=== PATIENT | female | born 1940 | race Caucasian/White ===

== ENCOUNTER 2018-09-10 14:11 | Outpatient (CLI) | payer MEDICARE ==
[2018-09-10 19:12] LABS: BASOPHILS % (AUTO) 0.5 %; EOSINOPHILS # (AUTO) 0.1 10^3/uL (0.0-0.7); EOSINOPHILS % (AUTO) 0.8 %; LYMPHOCYTES # (AUTO) 1.7 10^3/uL (1.5-3.5); MEAN CORPUSCULAR HEMOGLOBIN 32.6 pg (27.0-31.0); MEAN CORPUSCULAR HGB CONC 34.1 g/dL (32.0-36.0); MEAN CORPUSCULAR VOLUME 95.4 fL (81.0-99.0); MEAN PLATELET VOLUME 9.8 fL (7.9-10.8); MONOCYTES # (AUTO) 0.3 10^3/uL (0.0-1.0); MONOCYTES % (AUTO) 4.6 %; NEUTROPHILS # (AUTO) 4.6 10^3/uL (1.5-6.6); NEUTROPHILS % (AUTO) 68.1 %; PLT - PLATELET COUNT 161 10^3/uL (130-450); RED BLOOD COUNT 3.99 10^6/uL (4.20-5.40); RED CELL DISTRIBUTION WIDTH 12.5 % (12.0-15.0); WHITE BLOOD COUNT 6.7 x10^3/uL (4.8-10.8)
[2018-09-10 19:15] LABS: ALBUMIN 4.3 g/dL (3.2-5.5); ALBUMIN/GLOBULIN RATIO 1.8 (1.0-2.2); ALKALINE PHOSPHATASE 41 IU/L (42-121); ALT ALANINE AMINOTRANSFERASE 19 IU/L (10-60); AST ASPARTATE AMINOTRANSFERASE 23 IU/L (10-42); BILIRUBIN,TOTAL 0.7 mg/dL (0.2-1.0); BUN - BLOOD UREA NITROGEN 20 mg/dL (6-20); CALCIUM 9.4 mg/dL (8.5-10.3); CARBON DIOXIDE - CO2 24 mmol/L (21-32); CHLORIDE 105 mmol/L (101-111); CHOL/HDL RATIO 5.2 (<4.4); CHOLESTEROL 232 mg/dL; GFR - MDRD 54 (>89); GLUCOSE 137 mg/dL (70-100); HDL CHOLESTEROL 45 mg/dL; LDL CHOLESTEROL,CALCULATED 139 mg/dL; LDL/HDL RATIO 3.1 (<4.4); SODIUM 135 mmol/L (135-145); TOTAL PROTEIN 6.7 g/dL (6.7-8.2); VLDL CHOLESTEROL 48 mg/dL
== END 2018-09-10 14:12 | disposition home or self-care (01) ==
LOC: LAB.N 14:11
PROVIDERS: ATTEND Physician Assistant Medical
DX: Z00.00 Encounter for general adult medical examination without abnormal findings (principal); K21.9 Gastro-esophageal reflux disease without esophagitis; E78.5 Hyperlipidemia, unspecified; I10 Essential (primary) hypertension
CPT/HCPCS: 36415; 80053; 80061; 83721; 84443; 85025

== ENCOUNTER 2018-10-21 10:50 | Outpatient (CLI) | payer MEDICARE ==
[2018-10-21 19:49] LABS: BUN - BLOOD UREA NITROGEN 23 mg/dL (6-20); CALCIUM 9.1 mg/dL (8.5-10.3); CARBON DIOXIDE - CO2 23 mmol/L (21-32); CHLORIDE 105 mmol/L (101-111); CHOL/HDL RATIO 2.5 (<4.4); CHOLESTEROL 109 mg/dL; GFR - MDRD 54 (>89); GLUCOSE 89 mg/dL (70-100); HDL CHOLESTEROL 44 mg/dL; LDL CHOLESTEROL,CALCULATED 41 mg/dL; LDL/HDL RATIO 0.9 (<4.4); SODIUM 137 mmol/L (135-145); VLDL CHOLESTEROL 24 mg/dL
== END 2018-10-21 10:51 | disposition home or self-care (01) ==
LOC: LAB.N 10:50
PROVIDERS: ATTEND Physician Assistant Medical
DX: E78.5 Hyperlipidemia, unspecified (principal)
CPT/HCPCS: 36415; 80048; 80061; 83721

== ENCOUNTER 2020-06-07 01:05 | Emergency (ER) | payer MEDICARE ==
--- NOTE | 2020-06-07 01:19 | ED Physician Documentation ---
PD HPI UPPER EXT INJURY - Stated complaint Stated Complaint: L THUMB PX - Chief complaint Chief Complaint: Cardiac - History obtained from History obtained from: Patient - History of Present Illness Location: Left, Finger (thumb) Type of injury: Laceration (Cut her thumb with a small laceration 3 days ago while opening a wine bottle. She denies any foreign body in the area. It was from the room service associate device. She is now developed redness and swelling in the last day at the area and this evening has a red streak up her hand to the level of the wrist.), Other (She noted a feeling of pressure and palpitations in her chest on the right appear. This was the first she had ever felt of that.) Where injury occurred: Home Timing - duration: Days (3) Timing - details: Gradual onset, Still present Worsened by: Palpating Associated symptoms: Swelling (for 1 1/2 days), Discolored. No: Weakness, Numbness Similar symptoms before: Has not had sx before Review of Systems Constitutional: denies: Fever, Chills Nose: denies: Rhinorrhea / runny nose, Congestion Throat: denies: Sore throat Cardiac: reports: Palpitations (just enroute here). denies: Pedal edema, Calf pain Respiratory: denies: Cough GI: denies: Nausea, Vomiting, Diarrhea Neurologic: denies: Focal weakness, Numbness, Near syncope PD PAST MEDICAL HISTORY - Past Medical History Cardiovascular: Hypertension, Other (no history of afib nor SVT) Respiratory: None Neuro: None Endocrine/Autoimmune: None - Present Medications Home Medications: Ambulatory Orders Medication Instructions Recorded Confirmed Cephalexin [Keflex] 500 mg PO Q6H #28 capsule 06/07/20 Metoprolol Succinate 25 mg PO 06/07/20 Mupirocin 1 applic TP TID #15 g 06/07/20 Omeprazole 40 mg PO 06/07/20 Rosuvastatin Calcium 40 mg PO 06/07/20 lisinopriL [Lisinopril] 20 mg PO 06/07/20 - Allergies Allergies/Adverse Reactions: Allergies Allergy/AdvReac Type Severity Reaction Status Date / Time No Known Drug Allergies Allergy Verified 06/07/20 01:12 - Living Situation Living Situation: reports: Alone Living Arrangement: reports: At home - Social History Does the pt smoke?: No Does the pt drink ETOH?: Yes ETOH Use: Wine (very occasionally) Does the pt have substance abuse?: No PD ED PE NORMAL - Vitals Vital signs reviewed: Yes - General General: Alert and oriented X 3, No acute distress, Well developed/nourished - HEENT HEENT: Moist mucous membranes, Pharynx benign - Neck Neck: Supple, no meningeal sign, No adenopathy - Cardiac Cardiac: No murmur, No rub. No: RRR (rapid, regular at 180s.) - Respiratory Respiratory: Clear bilaterally - Abdomen Abdomen: Soft, Non tender - Back Back: No CVA TTP - Derm Derm: Normal color, Warm and dry - Extremities Extremities: No tenderness to palpate, Normal ROM s pain, No edema, No calf tenderness / cord, Other (Left thumb shows a small partial-thickness avulsion about 3 to 4 mm in diameter. There is no obvious foreign body. There is surrounding redness without any purulence nor fluctuance on the pulp pad part of the thumb and a lymphangitic streak up to the wrist) - Neuro Neuro: Alert and oriented X 3, No motor deficit, No sensory deficit, Normal speech Results - Vitals Vitals: Vital Signs - 24 hr 06/07/20 06/07/20 06/07/20 01:12 01:30 01:46 Temperature 36.6 C Heart Rate 184 H 178 H 162 H Respiratory 20 20 18 Rate Blood Pressure 153/123 H 157/104 H 149/111 H O2 Saturation 97 99 96 06/07/20 06/07/20 06/07/20 02:16 02:40 02:47 Temperature Heart Rate 142 H 83 72 Respiratory 18 23 18 Rate Blood Pressure 150/106 H 133/103 H 133/103 H O2 Saturation 95 97 98 06/07/20 06/07/20 06/07/20 03:15 03:26 03:30 Temperature Heart Rate 118 H 104 H 73 Respiratory 22 18 18 Rate Blood Pressure 148/103 H 148/103 H 121/98 H O2 Saturation 99 98 98 06/07/20 06/07/20 04:00 04:11 Temperature Heart Rate 85 80 Respiratory 18 21 Rate Blood Pressure 144/115 H 144/115 H O2 Saturation 98 99 Oxygen O2 Source Room air - EKG (time done) 01:18 Rate: Rate (enter#) (179) Rhythm: SVT Kulm: Normal Ischemia: Normal ST segments. No: ST elevation c/w ischemia, ST depression 04:07 Rate: Rate (enter#) (81) Rhythm: NSR Kulm: Normal Intervals: Normal IN QRS: Normal Ischemia: Normal ST segments. No: ST elevation c/w ischemia, ST depression Compare to prior EKG: Changed from prior EKG - Labs Labs: Laboratory Tests 06/07/20 06/07/20 06/07/20 01:30 01:30 01:30 WBC 9.4 RBC 4.05 L Hgb 13.5 Hct 38.1 MCV 94.1 MCH 33.3 H MCHC 35.4 RDW 11.8 L Plt Count 145 MPV 11.3 H Neut # (Auto) 6.9 H Lymph # (Auto) 1.6 [place] # (Auto) 0.7 Eos # (Auto) 0.1 Baso # (Auto) 0.0 Absolute Nucleated RBC 0.00 Nucleated RBC % 0.0 Sodium 138 Potassium 3.6 Chloride 106 Carbon Dioxide 20 L Anion Gap 12.0 BUN 13 Creatinine 0.9 Estimated GFR (MDRD) 60 L Glucose 128 H Calcium 9.5 Magnesium 1.9 Total Bilirubin 0.9 AST 28 ALT 26 Alkaline Phosphatase 49 Total Protein 7.2 Albumin 4.4 Globulin 2.8 Albumin/Globulin Ratio 1.6 Lipase 51 TSH 3.63 PD MEDICAL DECISION MAKING - ED course Complexity details: reviewed results, re-evaluated patient (Adenosine was given and did convert her to a sinus rhythm but just for half a minute or so and then resumed the SVT. Subsequent doses of metoprolol brought her heart rate down and she converted to sinus rhythm more consistently after the third dose.), considered differential (She has some cellulitis appearance of her wound on her with a lymphangitic streak up to the wrist. There is no fluctuance nor abscess formation. She also appears in SVT which sounds new onset), d/w patient ED course: SVT episode. She does not appear septic. Otherwise appears normal. No exertionally related symptoms. I think this was an incidental electrical disturbance and not account service representative of ischemic heart disease. Departure - Departure Disposition: 01 Home, Self Care Clinical Impression: Cellulitis of left thumb, SVT (supraventricular tachycardia) Condition: Stable Record reviewed to determine appropriate education?: Yes Instructions: ED Infec Skin Cellulitis, ED Tachycardia Pat PSVT Follow-Up: JANNETTE CAMPOS MD [Provider Admit Priv/Credential] - Prescriptions: Cephalexin [Keflex] 500 mg PO Q6H #28 capsule Mupirocin 1 applic TP TID #15 g Comments: Warm soaks or compresses for the thumb infection a few times a day. Apply mupirocin topical antibiotic to the area after that. Rest the hand and thumb otherwise. Cephalexin antibiotic orally 4 times a day for the next week. Recheck if not improving well over the next several days and resolved by 3 to 5 days. You did have an abnormal heart rhythm coming here called SVT T. It was resolved at the time that you left. Return if you have a similar feeling that lasts more than an hour or 2. Continue your usual medications and stay well-hydrated. Follow-up with your primary care regarding the SVT, discuss it at your next appointment next month. Return to the ER if your thumb infection is not improving over the next several days or if you have further episodes of the SVT feeling. Discharge Date/Time: 06/07/20 04:20
[2020-06-07] MEDS ORDERED: cefTRIAXone 1 GM VIAL IVP STA (01:35)
[2020-06-07] MEDS ORDERED: SODIUM CHLORIDE 0.9% 1,000 ML IV STA (01:35)
[2020-06-07] MEDS ORDERED: ADENOSINE 6 MG/2 ML VIAL IVP STA (01:35)
[2020-06-07 01:44] LABS: BASOPHILS % (AUTO) 0.3 %; EOSINOPHILS # (AUTO) 0.1 10^3/uL (0.0-0.7); EOSINOPHILS % (AUTO) 1.3 %; HGB - HEMOGLOBIN 13.5 g/dL (12.0-16.0); LYMPHOCYTES # (AUTO) 1.6 10^3/uL (1.5-3.5); LYMPHOCYTES % (AUTO) 16.5 %; MEAN CORPUSCULAR HEMOGLOBIN 33.3 pg (27.0-31.0); MEAN CORPUSCULAR HGB CONC 35.4 g/dL (32.0-36.0); MEAN CORPUSCULAR VOLUME 94.1 fL (81.0-99.0); MEAN PLATELET VOLUME 11.3 fL (7.9-10.8); MONOCYTES # (AUTO) 0.7 10^3/uL (0.0-1.0); MONOCYTES % (AUTO) 7.9 %; NEUTROPHILS # (AUTO) 6.9 10^3/uL (1.5-6.6); NEUTROPHILS % (AUTO) 73.6 %; PLT - PLATELET COUNT 145 10^3/uL (130-450); RED BLOOD COUNT 4.05 10^6/uL (4.20-5.40); RED CELL DISTRIBUTION WIDTH 11.8 % (12.0-15.0); WHITE BLOOD COUNT 9.4 x10^3/uL (4.8-10.8)
[2020-06-07 01:57] LABS: ALBUMIN 4.4 g/dL (3.2-5.5); ALBUMIN/GLOBULIN RATIO 1.6 (1.0-2.2); BILIRUBIN,TOTAL 0.9 mg/dL (0.2-1.0); CALCIUM 9.5 mg/dL (8.5-10.3); CREATININE 0.9 mg/dL (0.4-1.0); MAGNESIUM 1.9 mg/dL (1.7-2.8); TOTAL PROTEIN 7.2 g/dL (6.7-8.2)
[2020-06-07] MEDS ORDERED: METOPROLOL 5 MG/5 ML VIAL IVP STA ×3 (02:03→03:04)
[2020-06-07] MEDS ORDERED: POTASSIUM CHLOR 10 MEQ/100 ML 10 MEQ/100 ML BAG IV ONE (02:20)
[2020-06-07 04:07] VITALS: BP 144/115
[2020-06-07] MEDS ORDERED: MUPIROCIN 2% OINT 1 GM TOP STA (04:09)
== END 2020-06-07 04:20 | disposition home or self-care (01) ==
LOC: ED 01:05
DX: S61.012A Laceration without foreign body of left thumb without damage to nail, initial encounter (principal); L03.012 Cellulitis of left finger; W27.8XXA Contact with other nonpowered hand tool, initial encounter; Y93.89 Activity, other specified; Y92.009 Unspecified place in unspecified non-institutional (private) residence as the place of occurrence of the external cause; I47.1 Supraventricular tachycardia; I10 Essential (primary) hypertension
CPT/HCPCS: 36415; 80053; 83690; 83735; 84443; 85025; 93005; 96361; 96365; 96375; 96376; 99284; A9270; J0153

== ENCOUNTER 2021-03-28 07:00 | Outpatient (CLI) | payer MEDICARE ==
[2021-03-28 18:19] LABS: FECAL OCCULT BLOOD (FIT) NEGATIVE (NEGATIVE)
== END 2021-03-28 23:59 | disposition home or self-care (01) ==
LOC: LAB.N 07:00
PROVIDERS: ATTEND Family Medicine
DX: R19.4 Change in bowel habit (principal)
CPT/HCPCS: 82274

== ENCOUNTER 2021-04-02 04:30 | Outpatient (CLI) | payer MEDICARE | END 2021-04-02 23:59 | disposition home or self-care (01) | LOC: LAB.N 04:30 | PROVIDERS: ATTEND Family Medicine | DX: R19.4 Change in bowel habit (principal) | CPT/HCPCS: 81599; 87045; 87046; 87177; 87209; 87329; 87427 ==

== ENCOUNTER 2021-04-03 08:00 | Outpatient (CLI) | payer MEDICARE ==
[2021-04-04 12:57] LABS: H. PYLORIS ANTIGEN STL NEGATIVE (Negative)
== END 2021-04-03 23:59 ==
LOC: LAB.N 08:00
PROVIDERS: ATTEND Family Medicine
DX: R19.4 Change in bowel habit (principal)
CPT/HCPCS: 83993; 87338; 87493

== ENCOUNTER 2021-07-26 12:50 | Outpatient (CLI) | payer MEDICARE ==
[2021-07-26 17:52] LABS: BASOPHILS % (AUTO) 0.4 %; EOSINOPHILS # (AUTO) 0.1 10^3/uL (0.0-0.7); EOSINOPHILS % (AUTO) 1.1 %; HGB - HEMOGLOBIN 13.6 g/dL (12.0-16.0); LYMPHOCYTES # (AUTO) 1.6 10^3/uL (1.5-3.5); LYMPHOCYTES % (AUTO) 21.1 %; MEAN CORPUSCULAR HEMOGLOBIN 32.6 pg (27.0-31.0); MEAN CORPUSCULAR HGB CONC 33.2 g/dL (32.0-36.0); MEAN CORPUSCULAR VOLUME 98.3 fL (81.0-99.0); MEAN PLATELET VOLUME 11.4 fL (7.9-10.8); MONOCYTES # (AUTO) 0.5 10^3/uL (0.0-1.0); MONOCYTES % (AUTO) 6.7 %; NEUTROPHILS # (AUTO) 5.3 10^3/uL (1.5-6.6); NEUTROPHILS % (AUTO) 70.4 %; PLT - PLATELET COUNT 193 10^3/uL (130-450); RED BLOOD COUNT 4.17 10^6/uL (4.20-5.40); RED CELL DISTRIBUTION WIDTH 11.9 % (12.0-15.0); WHITE BLOOD COUNT 7.5 x10^3/uL (4.8-10.8)
[2021-07-26 18:11] LABS: ALBUMIN 4.5 g/dL (3.2-5.5); ALBUMIN/GLOBULIN RATIO 1.8 (1.0-2.2); ALKALINE PHOSPHATASE 51 IU/L (42-121); ALT ALANINE AMINOTRANSFERASE 21 IU/L (10-60); AST ASPARTATE AMINOTRANSFERASE 24 IU/L (10-42); BILIRUBIN,TOTAL 0.5 mg/dL (0.2-1.0); BUN - BLOOD UREA NITROGEN 11 mg/dL (6-20); CALCIUM 9.3 mg/dL (8.5-10.3); CARBON DIOXIDE - CO2 26 mmol/L (21-32); CHLORIDE 103 mmol/L (101-111); CHOL/HDL RATIO 2.9 (<4.4); CHOLESTEROL 147 mg/dL; CREATININE 0.8 mg/dL (0.4-1.0); GFR - MDRD 69 (>89); GLUCOSE 112 mg/dL (70-100); HDL CHOLESTEROL 51 mg/dL; LDL CHOLESTEROL,CALCULATED 21 mg/dL; LDL/HDL RATIO 0.4 (<4.4); POTASSIUM 4.1 mmol/L (3.5-5.0); SODIUM 137 mmol/L (135-145); TRIGLYCERIDES 377 mg/dL; VLDL CHOLESTEROL 75 mg/dL
[2021-07-26 18:19] LABS: THYROID STIMULATING HORMONE 1.99 uIU/mL (0.34-5.60)
[2021-07-26 18:20] LABS: FREE T3 3.46 pg/mL (2.5-3.9)
[2021-07-26 18:21] LABS: FREE T4 (FREE THYROXINE) 0.77 ng/dL (0.58-1.64)
== END 2021-07-26 23:59 | disposition home or self-care (01) ==
LOC: LAB.WCP 12:50
PROVIDERS: ATTEND Family Medicine
DX: R19.4 Change in bowel habit (principal); I47.1 Supraventricular tachycardia; K21.9 Gastro-esophageal reflux disease without esophagitis; E78.5 Hyperlipidemia, unspecified; I10 Essential (primary) hypertension
CPT/HCPCS: 36415; 80053; 80061; 83721; 84439; 84443; 84481; 85025

== ENCOUNTER 2021-09-05 13:23 | Outpatient (CLI) | payer MEDICARE | END 2021-09-05 13:24 | disposition home or self-care (01) | LOC: COV 13:23 | PROVIDERS: ATTEND Physician Assistant | DX: Z01.812 Encounter for preprocedural laboratory examination (principal); Z20.822 Contact with and (suspected) exposure to COVID-19 ==

== ENCOUNTER 2021-12-05 08:00 | Outpatient (CLI) | payer MEDICARE | END 2021-12-05 23:59 | LOC: LAB.N 08:00 | PROVIDERS: ATTEND Physician Assistant Medical | DX: R53.83 Other fatigue (principal); Z20.822 Contact with and (suspected) exposure to COVID-19 ==

== ENCOUNTER 2021-12-05 11:23 | Emergency (ER) | payer MEDICARE ==
--- NOTE | 2021-12-05 12:03 | XRAY Report ---
PROCEDURE: Chest 1 View X-Ray INDICATIONS: Chest pain TECHNIQUE: One view of the chest was acquired. COMPARISON: None FINDINGS: Surgical changes and devices: None. Lungs and pleura: No pleural effusions or pneumothorax. Lungs are clear. Eventration of the right hemidiaphragm. Mediastinum: Mediastinal contours appear normal. Heart size is normal. Bones and chest wall: No suspicious bony lesions. Overlying soft tissues appear unremarkable. IMPRESSION: Negative chest Reviewed by: Heber Dale MD on 12/05/2021 12:02 PM PST Approved by: Heber Dale MD on 12/05/2021 12:02 PM PST Station ID: [id number]
--- NOTE | 2021-12-05 12:11 | ED Physician Documentation ---
PD HPI CHEST PAIN - Stated complaint Stated Complaint: WEAKNESS/TIRED - Chief complaint Chief Complaint: Cardiac - History obtained from History obtained from: Patient - Additional information Additional information: This is a erin 81-year-old woman who presents referred by the walk-in clinic for evaluation of some chest discomfort, soft blood pressure and low heart rate. She has no history of heart disease. She does have a history of hypertension for which she is maintained on metoprolol. She states for the last month or so she has had intermittent chest discomfort lasting minutes at a time. It is in the left upper chest. It is not exertional. It may have woken her from sleep once or twice. It is not accelerating. It is not associated with shortness of breath, sweats, or nausea. She does note that she is lost about 15 pounds over the last year. It was not necessarily intentional. During that time she had not had her vital signs done or routine visit. At the walk-in clinic it was reported that her blood pressure was 90/50, and her heart rate was on the low side. She denies dizziness. No syncope. Review of Systems Ten Systems: 10 systems reviewed and negative Constitutional: reports: Weight Loss. denies: Fever, Chills, Fatigue Cardiac: denies: Palpitations Respiratory: denies: Dyspnea, Cough PD PAST MEDICAL HISTORY - Past Medical History Cardiovascular: Hypertension, Other Respiratory: None Neuro: None Endocrine/Autoimmune: None - Past Surgical History Past Surgical History: No - Present Medications Home Medications: Ambulatory Orders Medication Instructions Recorded Confirmed Metoprolol Succinate 25 mg PO BID 06/07/20 Mupirocin 1 applic TP TID #15 g 06/07/20 Omeprazole 40 mg PO 06/07/20 Rosuvastatin Calcium 40 mg PO 06/07/20 cephALEXin [Keflex] 500 mg PO Q6H #28 capsule 06/07/20 lisinopriL [Lisinopril] 20 mg PO DAILY 06/07/20 12/05/21 - Allergies Allergies/Adverse Reactions: Allergies Allergy/AdvReac Type Severity Reaction Status Date / Time No Known Drug Allergies Allergy Verified 12/05/21 11:30 - Social History Does the pt smoke?: No Smoking Status: Never smoker Does the pt drink ETOH?: Yes Does the pt have substance abuse?: No - Immunizations Immunizations are current?: Yes - POLST Patient has POLST: No PD ED PE NORMAL - Vitals Vital signs reviewed: Yes - General General: Alert and oriented X 3, No acute distress - HEENT HEENT: PERRL. No: EOMI (lazy eye) - Neck Neck: Supple, no meningeal sign, No bony TTP - Cardiac Cardiac: Other (Borderline bradycardia with rates in the high 40s and low 50s without murmur, regular) - Respiratory Respiratory: No respiratory distress, Clear bilaterally - Abdomen Abdomen: Normal bowel sounds, Soft, Non tender - Back Back: No CVA TTP, No spinal TTP - Derm Derm: Normal color, Warm and dry - Extremities Extremities: No edema, No calf tenderness / cord - Neuro Neuro: Alert and oriented X 3, Normal speech Results - Vitals Vitals: Vital Signs - 24 hr 12/05/21 12/05/21 12/05/21 11:31 12:03 12:30 Temperature 36.3 C L Heart Rate 49 L 46 L 52 L Respiratory 18 15 18 Rate Blood Pressure 121/58 L 107/65 119/67 O2 Saturation 100 100 100 12/05/21 12/05/21 12/05/21 13:00 13:30 14:00 Temperature 36.5 C Heart Rate 52 L 57 L 56 L Respiratory 12 16 18 Rate Blood Pressure 114/68 130/60 128/68 O2 Saturation 100 100 100 Oxygen O2 Source Room air - EKG (time done) 1133 Rate: Rate (enter#) (45) Rhythm: Sinus bradycardia Intervals: Other (LAFB) Ischemia: Non specific changes. No: ST elevation c/w ischemia, ST elevation c/w repol, ST depression - Labs Labs: Laboratory Tests 12/05/21 12/05/21 12/05/21 11:42 12:00 12:00 WBC 7.4 RBC 4.18 L Hgb 14.1 Hct 39.1 MCV 93.5 MCH 33.7 H MCHC 36.1 H RDW 11.7 L Plt Count 175 MPV 12.2 H Neut # (Auto) 5.0 Lymph # (Auto) 1.9 [place] # (Auto) 0.4 Eos # (Auto) 0.1 Baso # (Auto) 0.0 Absolute Nucleated RBC 0.00 Nucleated RBC % 0.0 Sodium 129 L Potassium 4.6 Chloride 99 L Carbon Dioxide 19 L Anion Gap 11.0 BUN 42 H Creatinine 2.1 H Estimated GFR (MDRD) 23 L Glucose 103 H POC Whole Bld Glucose 87 Calcium 9.5 Magnesium 2.1 Total Bilirubin 0.5 AST 33 ALT 23 Alkaline Phosphatase 54 Troponin I High Sens Total Protein 7.7 Albumin 4.9 Globulin 2.8 Albumin/Globulin Ratio 1.8 Lipase 60 H TSH 12/05/21 12/05/21 12:00 12:00 WBC RBC Hgb Hct MCV MCH MCHC RDW Plt Count MPV Neut # (Auto) Lymph # (Auto) [place] # (Auto) Eos # (Auto) Baso # (Auto) Absolute Nucleated RBC Nucleated RBC % Sodium Potassium Chloride Carbon Dioxide Anion Gap BUN Creatinine Estimated GFR (MDRD) Glucose POC Whole Bld Glucose Calcium Magnesium Total Bilirubin AST ALT Alkaline Phosphatase Troponin I High Sens 5.7 Total Protein Albumin Globulin Albumin/Globulin Ratio Lipase TSH 3.39 - Rads (name of study) Single view chest x-ray is unremarkable Radiology: EMP read contemporaneously PD MEDICAL DECISION MAKING - ED course ED course: This is an 81-year-old woman who presents with some intermittent nonexertional and atypical chest discomfort. She has a nonischemic EKG and a negative troponin. Its been going on for months. She was sent over from the walk-in clinic because of low heart rate and soft blood pressure. None of her medications have changed but she has noted some weight loss over the last year that has been unintentional. Work-up here demonstrates that she has acute appearing kidney injury, in July her creatinine was 0.8 and her BUN was 11. Now, just 4 months later, her creatinine is 2.1 and her BUN is 42. This is a prerenal pattern. She is not on any diuretics. The low heart rate and low blood pressure probably because of decreased renal excretion of her beta- emily. We will place an IV and give her some IV fluids and perform a retroperitoneal ultrasound for further work-up. 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 On further discussion it turns out she is taking NSAIDs daily and discussed with her that she needs to stop NSAID use. Departure - Departure Disposition: Home, Self Care Clinical Impression: SCOTT (acute kidney injury) Condition: Good Record reviewed to determine appropriate education?: Yes Follow-Up: Rehan Bateman MD [Primary Care Provider] - Comments: As discussed, today it seems that your low blood pressure is likely due to some kidney dysfunction which is probably a combination of dehydration and nonsteroidal anti-inflammatory drug use. Stop taking ibuprofen and do not take anything in that class. For aches and pains you can take Tylenol. Stop taking your metoprolol for now Cut your lisinopril dose in half to 10 mg. Follow-up with your primary care physician and mention the weight loss issue as well. Call today for the next available appointment. Return if worse.
[2021-12-05 12:14] LABS: BASOPHILS % (AUTO) 0.3 %; EOSINOPHILS # (AUTO) 0.1 10^3/uL (0.0-0.7); EOSINOPHILS % (AUTO) 0.9 %; HCT - HEMATOCRIT 39.1 % (37.0-47.0); HGB - HEMOGLOBIN 14.1 g/dL (12.0-16.0); LYMPHOCYTES # (AUTO) 1.9 10^3/uL (1.5-3.5); LYMPHOCYTES % (AUTO) 25.7 %; MEAN CORPUSCULAR HEMOGLOBIN 33.7 pg (27.0-31.0); MEAN CORPUSCULAR HGB CONC 36.1 g/dL (32.0-36.0); MEAN CORPUSCULAR VOLUME 93.5 fL (81.0-99.0); MEAN PLATELET VOLUME 12.2 fL (7.9-10.8); MONOCYTES # (AUTO) 0.4 10^3/uL (0.0-1.0); MONOCYTES % (AUTO) 5.8 %; PLT - PLATELET COUNT 175 10^3/uL (130-450); RED BLOOD COUNT 4.18 10^6/uL (4.20-5.40); RED CELL DISTRIBUTION WIDTH 11.7 % (12.0-15.0); WHITE BLOOD COUNT 7.4 x10^3/uL (4.8-10.8)
[2021-12-05 12:39] LABS: ALBUMIN 4.9 g/dL (3.2-5.5); ALBUMIN/GLOBULIN RATIO 1.8 (1.0-2.2); BILIRUBIN,TOTAL 0.5 mg/dL (0.2-1.0); CALCIUM 9.5 mg/dL (8.5-10.3); CREATININE 2.1 mg/dL (0.4-1.0); MAGNESIUM 2.1 mg/dL (1.7-2.8); POTASSIUM 4.6 mmol/L (3.5-5.0); TOTAL PROTEIN 7.7 g/dL (6.7-8.2)
[2021-12-05] MEDS ORDERED: SODIUM CHLORIDE 0.9% 1,000 ML IV STA (12:55)
[2021-12-05 14:40] VITALS: BP 118/72
--- NOTE | 2021-12-05 15:45 | Ultrasound Report ---
PROCEDURE: Retroperitoneal INDICATIONS: andrea TECHNIQUE: Real-time scanning was performed of the kidneys and bladder, with image documentation. COMPARISON: None FINDINGS: Kidneys: Kidneys are normal in size. Right kidney measures 8.9 cm long; left kidney measures 9.3 cm long. Right renal cortical thickness is 2.0 cm; left renal cortical thickness is 1.8 cm. Renal cor tical echotexture is normal. No hydronephrosis or nephrolithiasis. No suspicious solid mass lesions . 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 Bladder: Pre-void bladder volume is 47 mL. The bladder was relatively nondistended, the patient was unable to void. Pre-void images demonstrate no intraluminal masses or stones. On pre-void images, bi lateral ureteral jets are noted with color Doppler interrogation. (Of note, ureteral jets may not be detectable in up to 25% of cases due to insufficient differences in specific gravity between uretera l and bladder urine). Miscellaneous: No free pelvic fluid. IMPRESSION: Normal size kidneys for patient age with no evidence of hydronephrosis. Reviewed by: Heber Dale MD on 12/05/2021 3:43 PM PST Approved by: Heber Dale MD on 12/05/2021 3:43 PM PST Station ID: [id number]
== END 2021-12-05 14:45 | disposition home or self-care (01) ==
LOC: ED 11:23
DX: N17.9 Acute kidney failure, unspecified (principal); I10 Essential (primary) hypertension
CPT/HCPCS: 36415; 80053; 83690; 83735; 84443; 84484; 85025; 93005; 96360; 99284

== ENCOUNTER 2021-12-12 08:00 | Outpatient (CLI) | payer MEDICARE ==
[2021-12-12 12:02] LABS: BASOPHILS % (AUTO) 0.3 %; EOSINOPHILS # (AUTO) 0.1 10^3/uL (0.0-0.7); EOSINOPHILS % (AUTO) 0.8 %; HCT - HEMATOCRIT 34.9 % (37.0-47.0); HGB - HEMOGLOBIN 12.2 g/dL (12.0-16.0); LYMPHOCYTES # (AUTO) 1.5 10^3/uL (1.5-3.5); LYMPHOCYTES % (AUTO) 24.2 %; MEAN CORPUSCULAR HEMOGLOBIN 32.8 pg (27.0-31.0); MEAN CORPUSCULAR VOLUME 93.8 fL (81.0-99.0); MEAN PLATELET VOLUME 12.2 fL (7.9-10.8); MONOCYTES # (AUTO) 0.4 10^3/uL (0.0-1.0); MONOCYTES % (AUTO) 5.9 %; NEUTROPHILS # (AUTO) 4.3 10^3/uL (1.5-6.6); NEUTROPHILS % (AUTO) 68.5 %; PLT - PLATELET COUNT 168 10^3/uL (130-450); RED BLOOD COUNT 3.72 10^6/uL (4.20-5.40); RED CELL DISTRIBUTION WIDTH 11.7 % (12.0-15.0); WHITE BLOOD COUNT 6.3 x10^3/uL (4.8-10.8)
[2021-12-12 12:09] LABS: CALCIUM 9.6 mg/dL (8.5-10.3); CREATININE 0.9 mg/dL (0.4-1.0); POTASSIUM 3.8 mmol/L (3.5-5.0)
== END 2021-12-12 23:59 | disposition home or self-care (01) ==
LOC: LAB.WCP 08:00
PROVIDERS: ATTEND Family Medicine
DX: K59.09 Other constipation (principal); N17.0 Acute kidney failure with tubular necrosis; I47.1 Supraventricular tachycardia; K21.9 Gastro-esophageal reflux disease without esophagitis; I10 Essential (primary) hypertension
CPT/HCPCS: 36415; 80048; 85025

== ENCOUNTER 2022-01-23 12:07 | Emergency (ER) | payer MEDICARE ==
--- NOTE | 2022-01-23 12:35 | XRAY Report ---
PROCEDURE: Chest 1 View X-Ray INDICATIONS: Chest pain TECHNIQUE: One view of the chest was acquired. COMPARISON: None FINDINGS: Surgical changes and devices: None. Lungs and pleura: No pleural effusions or pneumothorax. Minimal streaky bibasilar opacities. No foca l consolidations. Lungs are otherwise clear. Mediastinum: Mediastinal contours appear normal. Heart size is normal. Bones and chest wall: No suspicious bony lesions. Overlying soft tissues appear unremarkable. IMPRESSION: Minimal streaky bibasilar opacities favored to represent atelectasis. No focal consolidations. Otherw ise, no acute cardiopulmonary abnormalities. Reviewed by: Thanh Friedman MD on 01/23/2022 12:34 PM PST Approved by: Tahnh Friedman MD on 01/23/2022 12:34 PM PST Station ID: [id number]
[2022-01-23 12:41] LABS: BASOPHILS % (AUTO) 0.4 %; EOSINOPHILS # (AUTO) 0.1 10^3/uL (0.0-0.7); EOSINOPHILS % (AUTO) 1.2 %; HCT - HEMATOCRIT 38.6 % (37.0-47.0); HGB - HEMOGLOBIN 13.5 g/dL (12.0-16.0); LYMPHOCYTES # (AUTO) 1.9 10^3/uL (1.5-3.5); LYMPHOCYTES % (AUTO) 22.7 %; MEAN CORPUSCULAR HEMOGLOBIN 33.8 pg (27.0-31.0); MEAN CORPUSCULAR VOLUME 96.7 fL (81.0-99.0); MONOCYTES # (AUTO) 0.5 10^3/uL (0.0-1.0); MONOCYTES % (AUTO) 6.3 %; NEUTROPHILS # (AUTO) 5.9 10^3/uL (1.5-6.6); NEUTROPHILS % (AUTO) 69.2 %; PLT - PLATELET COUNT 179 10^3/uL (130-450); RED BLOOD COUNT 3.99 10^6/uL (4.20-5.40); RED CELL DISTRIBUTION WIDTH 12.1 % (12.0-15.0); WHITE BLOOD COUNT 8.6 x10^3/uL (4.8-10.8)
[2022-01-23 12:55] LABS: ALBUMIN 4.7 g/dL (3.2-5.5); ALBUMIN/GLOBULIN RATIO 1.7 (1.0-2.2); BILIRUBIN,TOTAL 0.7 mg/dL (0.2-1.0); CALCIUM 9.5 mg/dL (8.5-10.3); CREATININE 0.8 mg/dL (0.4-1.0); POTASSIUM 4.2 mmol/L (3.5-5.0); TOTAL PROTEIN 7.5 g/dL (6.7-8.2)
--- NOTE | 2022-01-23 17:00 | ED Physician Documentation ---
History of Present Illness - Stated complaint Stated Complaint: CP - Chief complaint Chief Complaint: Cardiac - History obtained from History obtained from: Patient - Additonal information Additional information: The patient comes to the emergency department chief complaint of chest pain around her sternal area For the past 2 years. She states it is intermittent and seems worse when she is feeling anxious about something, but she can experience it at any time. It is not clearly exertion related. In fact, the patient states it seems better when she is busy doing housework. The patient states it hurts worse to take a deep breath but she does not feel short of breath per se. She denies any recent injury to the area. No escalation of the pain. No diaphoresis, lightheadedness, or nausea associated with it. No radiation. Patient states she is here because her daughter told her to come in and get checked out. The patient has no prior medical history and is not on any medications for anything. She has no known diagnoses of heart or lung issues. She was a smoker many years ago but does not currently smoke. No other complaints at this time. She is having the pain currently at about a 2 out of 10. Review of Systems Ten Systems: 10 systems reviewed and negative Constitutional: reports: Reviewed and negative Eyes: reports: Reviewed and negative Ears: reports: Reviewed and negative Nose: reports: Reviewed and negative Throat: reports: Reviewed and negative Cardiac: reports: Chest pain / pressure Respiratory: reports: Reviewed and negative GI: reports: Reviewed and negative : reports: Reviewed and negative Skin: reports: Reviewed and negative Musculoskeletal: reports: Reviewed and negative Neurologic: reports: Reviewed and negative Psychiatric: reports: Reviewed and negative Endocrine: reports: Reviewed and negative Immunocompromised: reports: Reviewed and negative PD PAST MEDICAL HISTORY - Past Medical History Cardiovascular: Hypertension, Other Respiratory: None Neuro: None Endocrine/Autoimmune: None - Past Surgical History Past Surgical History: No - Present Medications Home Medications: Ambulatory Orders Medication Instructions Recorded Confirmed Metoprolol Succinate 25 mg PO BID 06/07/20 Mupirocin 1 applic TP TID #15 g 06/07/20 Omeprazole 40 mg PO 06/07/20 Rosuvastatin Calcium 40 mg PO 06/07/20 cephALEXin [Keflex] 500 mg PO Q6H #28 capsule 06/07/20 lisinopriL [Lisinopril] 20 mg PO DAILY 06/07/20 12/05/21 - Allergies Allergies/Adverse Reactions: Allergies Allergy/AdvReac Type Severity Reaction Status Date / Time No Known Drug Allergies Allergy Verified 01/23/22 12:20 - Social History Does the pt smoke?: No Smoking Status: Never smoker Does the pt drink ETOH?: Yes Does the pt have substance abuse?: No - Immunizations Immunizations are current?: Yes - POLST Patient has POLST: No PD ED PE NORMAL - Vitals Vital signs reviewed: Yes - General General: Alert and oriented X 3, No acute distress, Well developed/nourished - HEENT HEENT: Atraumatic, PERRL, EOMI, Moist mucous membranes - Neck Neck: Supple, no meningeal sign - Cardiac Cardiac: RRR, No murmur, Strong equal pulses - Respiratory Respiratory: No respiratory distress, Clear bilaterally - Abdomen Abdomen: Soft, Non tender, Non distended - Derm Derm: Normal color, Warm and dry, No rash - Extremities Extremities: No deformity, No edema, No calf tenderness / cord - Neuro Neuro: Alert and oriented X 3, scrum product owner 2-12 intact, Normal speech - Psych Psych: Normal mood, Normal affect PD ED PE EXPANDED - Free text exam Free text exam: Chest wall tenderness parasternally that reproduces the pain patient is having. Results - Vitals Vitals: Vital Signs - 24 hr 01/23/22 01/23/22 12:14 15:53 Temperature 36.1 C L 36.2 C L Heart Rate 58 L 60 Respiratory 20 16 Rate Blood Pressure 176/91 H 132/70 H O2 Saturation 100 100 Oxygen O2 Source Room air - EKG (time done) 1219 Rate: Rate (enter#) (55) Rhythm: NSR [place]: Normal Intervals: Normal [place] QRS: Normal Ischemia: Normal ST segments, Non specific changes - Labs Labs: Laboratory Tests 01/23/22 01/23/22 01/23/22 12:35 12:35 12:35 WBC 8.6 RBC 3.99 L Hgb 13.5 Hct 38.6 MCV 96.7 MCH 33.8 H MCHC 35.0 RDW 12.1 Plt Count 179 MPV 11.0 H Neut # (Auto) 5.9 Lymph # (Auto) 1.9 [place] # (Auto) 0.5 Eos # (Auto) 0.1 Baso # (Auto) 0.0 Absolute Nucleated RBC 0.00 Nucleated RBC % 0.0 Sodium 127 L Potassium 4.2 Chloride 93 L Carbon Dioxide 25 Anion Gap 9.0 BUN 16 Creatinine 0.8 Estimated GFR (MDRD) 69 L Glucose 101 H Calcium 9.5 Total Bilirubin 0.7 AST 27 ALT 23 Alkaline Phosphatase 51 Troponin I High Sens 4.4 Total Protein 7.5 Albumin 4.7 Globulin 2.8 Albumin/Globulin Ratio 1.7 Lipase 46 01/23/22 14:31 WBC RBC Hgb Hct MCV MCH MCHC RDW Plt Count MPV Neut # (Auto) Lymph # (Auto) [place] # (Auto) Eos # (Auto) Baso # (Auto) Absolute Nucleated RBC Nucleated RBC % Sodium Potassium Chloride Carbon Dioxide Anion Gap BUN Creatinine Estimated GFR (MDRD) Glucose Calcium Total Bilirubin AST ALT Alkaline Phosphatase Troponin I High Sens 4.1 Total Protein Albumin Globulin Albumin/Globulin Ratio Lipase - Rads (name of study) Chest x-ray Radiology: Final report received, EMP read indepedently, See rad report (No acute findings) PD MEDICAL DECISION MAKING - ED course Complexity details: reviewed results, re-evaluated patient, considered d ifferential, d/w patient ED course: The patient had a negative work-up in the emergency department, including labs with 2 troponins, EKG, and chest x-ray. She was low risk other than her age, and had had previous negative stress tests. Her pain was chronic and sounded more like a chest wall etiology. I discussed with the patient that she wants more clarity, she come follow-up with her primary doctor for a stress test. We discussed the usual indications for return. Departure - Departure Instructions: ED Chest Pain Costochondritis Comments: All of your tests look good today. You have had an EKG and chest x-ray which look good, and your laboratory studies are also reassuring, including 2 sets of cardiac enzymes, which look for a "heart attack". Given that your pain has been going on for 2 years and seems to be more related to movement and deep breaths, it is most likely that is coming from your chest wall. However, if you wish to have greater peace of mind regarding your heart, you may talk to your primary doctor about having a stress test done. If you develop severe pain, shortness of breath, lightheadedness, sweating, and nausea, please return to the emergency department immediately. Otherwise, please follow up with your primary care physician as soon as you are able.
[2022-01-23 17:15] VITALS: BP 168/74
== END 2022-01-23 17:21 | disposition home or self-care (01) ==
LOC: ED 12:07
DX: M94.0 Chondrocostal junction syndrome [Tietze] (principal); I10 Essential (primary) hypertension
CPT/HCPCS: 36415; 80053; 83690; 84484; 85025; 93005; 99284

== ENCOUNTER 2022-01-24 11:13 | Outpatient (CLI) | payer MEDICARE ==
[2022-01-24 18:18] LABS: BASOPHILS % (AUTO) 0.4 %; EOSINOPHILS # (AUTO) 0.1 10^3/uL (0.0-0.7); EOSINOPHILS % (AUTO) 1.5 %; HCT - HEMATOCRIT 38.8 % (37.0-47.0); HGB - HEMOGLOBIN 13.5 g/dL (12.0-16.0); LYMPHOCYTES # (AUTO) 1.7 10^3/uL (1.5-3.5); MEAN CORPUSCULAR HEMOGLOBIN 34.4 pg (27.0-31.0); MEAN CORPUSCULAR HGB CONC 34.8 g/dL (32.0-36.0); MEAN PLATELET VOLUME 11.9 fL (7.9-10.8); MONOCYTES # (AUTO) 0.5 10^3/uL (0.0-1.0); NEUTROPHILS # (AUTO) 4.5 10^3/uL (1.5-6.6); NEUTROPHILS % (AUTO) 65.8 %; PLT - PLATELET COUNT 173 10^3/uL (130-450); RED BLOOD COUNT 3.92 10^6/uL (4.20-5.40); RED CELL DISTRIBUTION WIDTH 12.3 % (12.0-15.0); WHITE BLOOD COUNT 6.9 x10^3/uL (4.8-10.8)
[2022-01-24 18:38] LABS: ALBUMIN 4.4 g/dL (3.2-5.5); ALBUMIN/GLOBULIN RATIO 1.6 (1.0-2.2); BILIRUBIN,TOTAL 0.5 mg/dL (0.2-1.0); CALCIUM 9.4 mg/dL (8.5-10.3); CREATININE 0.9 mg/dL (0.4-1.0); POTASSIUM 4.1 mmol/L (3.5-5.0); TOTAL PROTEIN 7.1 g/dL (6.7-8.2)
[2022-01-24 18:50] LABS: THYROID STIMULATING HORMONE 2.65 uIU/mL (0.34-5.60)
[2022-01-24 18:51] LABS: FREE T3 2.99 pg/mL (2.5-3.9)
[2022-01-24 18:52] LABS: FREE T4 (FREE THYROXINE) 0.78 ng/dL (0.58-1.64)
== END 2022-01-24 11:14 | disposition home or self-care (01) ==
LOC: LAB.N 11:13
PROVIDERS: ATTEND Family Medicine
DX: I10 Essential (primary) hypertension (principal); K59.09 Other constipation; I47.1 Supraventricular tachycardia; K21.9 Gastro-esophageal reflux disease without esophagitis
CPT/HCPCS: 36415; 80053; 84439; 84443; 84481; 85025

== ENCOUNTER 2022-05-02 10:40 | Outpatient (CLI) | payer MEDICARE ==
--- NOTE | 2022-05-02 15:19 | XRAY Report ---
PROCEDURE: Lumbar Spine Complete INDICATIONS: LOW BACK PX TECHNIQUE: 5 views of the lumbar spine were acquired. COMPARISON: None. FINDINGS: Bones: 5 [id number] vertebrae are present. There is roughly 8 mm of anterolisthesis of L5 on S 1. Multilevel disc space narrowing and endplate osteophyte formation, as well as facet hypertrophy th roughout the lumbar spine. Roughly 4 mm of retrolisthesis of L2 on L3, L3 on L4, and L4 on L5. No melvin tebral body compression fractures. No suspicious bony lesions. Soft tissues: Overlying bowel gas pattern is normal. No suspicious soft tissue calcifications. IMPRESSION: 1. Multilevel degenerative disc and facet disease. 2. No acute fracture. No osseous lesion. If symptoms and/or clinical suspicion for pathology continue , further assessment with repeat plain films, or advanced imaging (e.g., CT, MRI, or bone scan) is re commended for further assessment. 3. Multilevel spondylolistheses. Reviewed by: Tasia Macias MD on 05/02/2022 3:17 PM PDT Approved by: Tasai Macias MD on 05/02/2022 3:17 PM PDT Station ID: [id number]
--- NOTE | 2022-05-02 15:32 | XRAY Report ---
PROCEDURE: Abdomen 2 View X-Ray INDICATIONS: CHRONIC CONSTIPATION TECHNIQUE: 2 views of the abdomen were acquired. COMPARISON: None. FINDINGS: Surgical changes and devices: None. Bowel: No pneumoperitoneum. The bowel gas pattern is normal. Mild to moderate stool is seen in the colon. Soft tissues: No masses; visualized solid organ contours appear normal in size. No suspicious abdom inal calcifications. Bones: No suspicious bony abnormalities. Degenerative changes are seen in the included spine. IMPRESSION: Nonobstructive bowel gas pattern. Mild to moderate stool in the colon. Reviewed by: Nash Lindsey MD on 05/02/2022 3:31 PM PDT Approved by: Nash Lindsey MD on 05/02/2022 3:31 PM PDT Station ID: [id number]
== END 2022-05-02 10:41 | disposition home or self-care (01) ==
LOC: DI.N 10:40
PROVIDERS: ATTEND Family Medicine
DX: M47.816 Spondylosis without myelopathy or radiculopathy, lumbar region (principal); M51.36 Other intervertebral disc degeneration, lumbar region; M43.16 Spondylolisthesis, lumbar region; M43.17 Spondylolisthesis, lumbosacral region; K59.09 Other constipation

== ENCOUNTER 2022-11-06 13:31 | Outpatient (CLI) | payer MEDICARE ==
[2022-11-06 17:44] LABS: BASOPHILS % (AUTO) 0.5 %; EOSINOPHILS # (AUTO) 0.1 10^3/uL (0.0-0.7); EOSINOPHILS % (AUTO) 1.5 %; HGB - HEMOGLOBIN 12.4 g/dL (12.0-16.0); LYMPHOCYTES # (AUTO) 1.4 10^3/uL (1.5-3.5); LYMPHOCYTES % (AUTO) 22.9 %; MEAN CORPUSCULAR HEMOGLOBIN 33.2 pg (27.0-31.0); MEAN CORPUSCULAR HGB CONC 33.5 g/dL (32.0-36.0); MEAN CORPUSCULAR VOLUME 98.9 fL (81.0-99.0); MEAN PLATELET VOLUME 11.2 fL (7.9-10.8); MONOCYTES # (AUTO) 0.4 10^3/uL (0.0-1.0); MONOCYTES % (AUTO) 6.9 %; NEUTROPHILS # (AUTO) 4.2 10^3/uL (1.5-6.6); NEUTROPHILS % (AUTO) 67.9 %; PLT - PLATELET COUNT 173 10^3/uL (130-450); RED BLOOD COUNT 3.74 10^6/uL (4.20-5.40); RED CELL DISTRIBUTION WIDTH 11.9 % (12.0-15.0); WHITE BLOOD COUNT 6.1 x10^3/uL (4.8-10.8)
[2022-11-06 18:13] LABS: ALBUMIN 4.6 g/dL (3.2-5.5); ALBUMIN/GLOBULIN RATIO 1.8 (1.0-2.2); ALKALINE PHOSPHATASE 55 IU/L (42-121); ALT ALANINE AMINOTRANSFERASE 27 IU/L (10-60); AST ASPARTATE AMINOTRANSFERASE 29 IU/L (10-42); BILIRUBIN,TOTAL 0.7 mg/dL (0.2-1.0); BUN - BLOOD UREA NITROGEN 16 mg/dL (6-20); CALCIUM 9.4 mg/dL (8.5-10.3); CARBON DIOXIDE - CO2 24 mmol/L (21-32); CHLORIDE 98 mmol/L (101-111); CHOL/HDL RATIO 2.5 (<4.4); CHOLESTEROL 134 mg/dL; CREATININE 0.9 mg/dL (0.4-1.0); GFR - MDRD 60 (>89); GLUCOSE 102 mg/dL (70-100); HDL CHOLESTEROL 53 mg/dL; LDL CHOLESTEROL,CALCULATED 48 mg/dL; LDL/HDL RATIO 0.9 (<4.4); POTASSIUM 4.6 mmol/L (3.5-5.0); SODIUM 131 mmol/L (135-145); TOTAL PROTEIN 7.1 g/dL (6.7-8.2); TRIGLYCERIDES 165 mg/dL; VLDL CHOLESTEROL 33 mg/dL
[2022-11-06 18:19] LABS: THYROID STIMULATING HORMONE 2.1 uIU/mL (0.34-5.60)
== END 2022-11-06 13:32 | disposition home or self-care (01) ==
LOC: LAB.N 13:31
PROVIDERS: ATTEND Family Medicine
DX: I10 Essential (primary) hypertension (principal); K59.09 Other constipation; E78.5 Hyperlipidemia, unspecified; I47.1 Supraventricular tachycardia; J30.9 Allergic rhinitis, unspecified; K21.9 Gastro-esophageal reflux disease without esophagitis
CPT/HCPCS: 36415; 80053; 80061; 83721; 84443; 85025

== ENCOUNTER 2022-12-12 15:50 | Outpatient (CLI) | payer MEDICARE ==
--- NOTE | 2022-12-12 16:56 | MRI Report ---
PROCEDURE: BRAIN WO INDICATIONS: DEMENTIA TECHNIQUE: Noncontrast axial T1 spin echo, axial T2 fast spin echo, sagittal and axial FLAIR, coronal T2 fast sp in echo, axial gradient echo, axial diffusion and ADC through the brain. COMPARISON: None. FINDINGS: Image quality: Excellent. CSF Spaces: Basal cisterns are patent. No extra-axial fluid collections. Ventricles are normal in size and shape. Brain: No intracranial masses or hemorrhage. Moderate diffuse cerebral volume loss. Mild degree of patchy high FLAIR signal within the periventricular and subcortical white matter. Ortega/white matter i nterface is normal. Brainstem appears normal. Diffusion-weighted images demonstrate no acute ischem ic insult. No chronic ischemic insults. Normal intravascular flow voids are present. Skull and face: Calvarium has normal marrow signal. Orbits appear normal. Sinuses: Sinuses and mastoids are clear. IMPRESSION: 1. Volume loss and small vessel ischemic disease. 2. No acute process. No recent infarct. Reviewed by: Tasia Macias MD on 12/12/2022 4:55 PM PST Approved by: Tasia Macias MD on 12/12/2022 4:55 PM PST Station ID: [id number]
== END 2022-12-12 15:51 | disposition home or self-care (01) ==
LOC: DI 15:50
PROVIDERS: ATTEND Family Medicine
DX: F03.90 Unspecified dementia, unspecified severity, without behavioral disturbance, psychotic disturbance, mood disturbance, and anxiety (principal); G31.89 Other specified degenerative diseases of nervous system; I67.82 Cerebral ischemia

== ENCOUNTER 2023-03-20 09:33 | Outpatient (CLI) | payer MEDICARE ==
[2023-03-20 12:11] LABS: CALCIUM 9.2 mg/dL (8.5-10.3); CREATININE 0.7 mg/dL (0.4-1.0); POTASSIUM 4.1 mmol/L (3.5-5.0)
== END 2023-03-20 09:34 | disposition home or self-care (01) ==
LOC: LAB.N 09:33
PROVIDERS: ATTEND Physician Assistant Medical
DX: I47.1 Supraventricular tachycardia (principal)
CPT/HCPCS: 36415; 80048

== ENCOUNTER 2023-04-05 15:43 | Outpatient (CLI) | payer MEDICARE | END 2023-04-05 23:59 | disposition critical access hospital (66) | LOC: EMS 15:43 | DX: S00.83XA Contusion of other part of head, initial encounter (principal); M79.621 Pain in right upper arm; W18.39XA Other fall on same level, initial encounter; Y92.008 Other place in unspecified non-institutional (private) residence as the place of occurrence of the external cause; F03.918 Unspecified dementia, unspecified severity, with other behavioral disturbance | CPT/HCPCS: A0425; A0429 ==

== ENCOUNTER 2023-04-05 15:58 | Emergency (ER) | payer MEDICARE ==
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
--- NOTE | 2023-04-05 17:23 | XRAY Report ---
PROCEDURE: Shoulder 3 View RT INDICATIONS: pain after fall TECHNIQUE: 3 views of the shoulder were acquired. COMPARISON: None. FINDINGS: Bones: No fractures or dislocations. Moderate acromioclavicular and glenohumeral joint osteoarthrit ic changes are seen with significant joint space narrowing, subchondral sclerosis and inferior margin al osteophyte formation. Superior migration of humeral head in relation to glenoid is noted. No suspi cious bony lesions. Visualized ribs appear intact. Soft tissues: No suspicious soft tissue calcifications. IMPRESSION: No acute shoulder fracture or dislocation. Moderate right shoulder joint osteoarthritis. Superior migration of humeral head in relation to glenoid which can be seen associated with full-thic kness rotator cuff tendon rupture. Clinical correlation is recommended. Reviewed by: Gennaro Hernandez MD on 04/05/2023 4:22 PM JOVANNA Approved by: Gennaro Hernandez MD on 04/05/2023 4:22 PM JOVANNA Station ID: [id number]
--- NOTE | 2023-04-05 17:31 | XRAY Report ---
PROCEDURE: Chest 1 View X-Ray INDICATIONS: glf TECHNIQUE: One view of the chest was acquired. COMPARISON: 01/23/2022. FINDINGS: Surgical changes and devices: None. Lungs and pleura: No pleural effusions or pneumothorax. Lungs are clear. Mediastinum: Mediastinal contours appear normal. Heart size is normal. Bones and chest wall: No suspicious bony lesions. Overlying soft tissues appear unremarkable. IMPRESSION: No acute cardiopulmonary process. Reviewed by: Gennaro Hernandez MD on 04/05/2023 4:30 PM AKDT Approved by: Gennaro Hernandez MD on 04/05/2023 4:30 PM AKDT Station ID: [id number]
--- NOTE | 2023-04-05 17:34 | CT Report ---
PROCEDURE: HEAD WO INDICATIONS: occiput hematom TECHNIQUE: Noncontrast 4.5 mm thick angled axial sections acquired from the foramen magnum to the vertex. For r adiation dose reduction, the following was used: automated exposure control, adjustment of mA and/or kV according to patient size. COMPARISON: Correlation made to MRI of the brain 12/12/2022 FINDINGS: Image quality: Excellent. CSF spaces: Basal cisterns are patent. No extra-axial fluid collections. Ventricles are normal in size and shape. Brain: No midline shift. No intracranial masses or hemorrhage. Ortega-white matter interface is norm al. Skull and face: Calvarium and visualized facial bones are intact, without suspicious lesions. Sinuses: small mucous retention cyst or polyp in left maxillary sinus. Visualized sinuses and mastoid s are otherwise clear. IMPRESSION: 1. No CT evidence of acute intracranial process. 2. No significant soft tissue injury or visible fracture. Reviewed by: Lety Goode MD on 04/05/2023 5:32 PM PDT Approved by: Lety Goode MD on 04/05/2023 5:32 PM PDT Station ID: [id number]
[2023-04-05 17:38] LABS: BASOPHILS % (AUTO) 0.3 %; EOSINOPHILS % (AUTO) 0.3 %; HGB - HEMOGLOBIN 11.7 g/dL (12.0-16.0); LYMPHOCYTES # (AUTO) 0.7 10^3/uL (1.5-3.5); LYMPHOCYTES % (AUTO) 9.7 %; MEAN CORPUSCULAR HEMOGLOBIN 33.4 pg (27.0-31.0); MEAN CORPUSCULAR HGB CONC 35.5 g/dL (32.0-36.0); MEAN CORPUSCULAR VOLUME 94.3 fL (81.0-99.0); MEAN PLATELET VOLUME 9.4 fL (7.9-10.8); MONOCYTES # (AUTO) 0.4 10^3/uL (0.0-1.0); MONOCYTES % (AUTO) 5.6 %; NEUTROPHILS # (AUTO) 6.3 10^3/uL (1.5-6.6); NEUTROPHILS % (AUTO) 83.8 %; PLT - PLATELET COUNT 178 10^3/uL (130-450); RED CELL DISTRIBUTION WIDTH 11.6 % (12.0-15.0); WHITE BLOOD COUNT 7.5 x10^3/uL (4.8-10.8)
--- NOTE | 2023-04-05 17:39 | CT Report ---
PROCEDURE: CERVICAL SPINE WO INDICATIONS: Ground-level fall TECHNIQUE: Noncontrast 3 mm thick sections acquired from the skull base to the T4 level. Sagittal and coronal r eformats were then constructed. For radiation dose reduction, the following was used: automated exp osure control, adjustment of mA and/or kV according to patient size. COMPARISON: None. FINDINGS: Image quality: Excellent. Bones: No acute fractures or dislocations. Moderate degenerative changes at the atlantodental interval. The craniocervical junction is intact. I ncomplete union of posterior C1 ring. There are prominent degenerative changes in the endplates throughout the thoracic spine and small end plate spurs. Multilevel disc height loss. Moderate S-shaped cervicothoracic scoliosis. Severe left-sided C3-4 and C4-5 facet hypertrophy. Visualized superior ribs are intact. Soft tissues: Prevertebral soft tissues are normal in thickness. No paravertebral hematomas. No ap ical pneumothoraces. IMPRESSION: 1. No acute cervical vertebral body fractures. 2. Prominent degenerative disc, endplate, and left-sided facet joint changes. Reviewed by: Lety Goode MD on 04/05/2023 5:38 PM PDT Approved by: Lety Goode MD on 04/05/2023 5:38 PM PDT Station ID: [id number]
[2023-04-05 17:52] LABS: ALBUMIN 4.2 g/dL (3.2-5.5); ALBUMIN/GLOBULIN RATIO 1.7 (1.0-2.2); BILIRUBIN,TOTAL 0.4 mg/dL (0.2-1.0); CALCIUM 8.8 mg/dL (8.5-10.3); CREATININE 0.7 mg/dL (0.4-1.0); TOTAL PROTEIN 6.7 g/dL (6.7-8.2)
[2023-04-05 17:54] LABS: POTASSIUM 2.5 mmol/L (3.5-5.0)
[2023-04-05] MEDS ORDERED: POTASSIUM CHLORIDE 20 MEQ TABLET PO STA (17:57)
[2023-04-05 18:27] VITALS: BP 142/80
== END 2023-04-05 18:30 | disposition home or self-care (01) ==
LOC: EDUNIT# → ED 15:58
DX: S00.03XA Contusion of scalp, initial encounter (principal); W01.0XXA Fall on same level from slipping, tripping and stumbling without subsequent striking against object, initial encounter; Y93.02 Activity, running; Y92.009 Unspecified place in unspecified non-institutional (private) residence as the place of occurrence of the external cause; E87.6 Hypokalemia; M25.511 Pain in right shoulder; M50.33 Other cervical disc degeneration, cervicothoracic region; G30.9 Alzheimer's disease, unspecified; F02.B18 Dementia in other diseases classified elsewhere, moderate, with other behavioral disturbance
CPT/HCPCS: 36415; 80053; 83690; 85025; 99284

== ENCOUNTER 2023-04-05 21:42 | Emergency (ER) | payer MEDICARE ==
[2023-04-05 22:08] VITALS: BP 128/78
[2023-04-05] MEDS ORDERED: BACITRACIN ZINC OINT 1 PACKET TOP STA (22:21)
--- NOTE | 2023-04-05 22:24 | ED Physician Documentation ---
PD HPI HEENT - Stated complaint Stated Complaint: HEAD INJ/LIGHT HEADED - Chief complaint Chief Complaint: Heent - History obtained from History obtained from: Patient - Additional information Additional information: 82-year-old woman returns after being seen earlier today after hitting her head. She has some persistent bleeding from a small laceration to the mid occiput. She is requesting it be repaired PD PAST MEDICAL HISTORY - Past Medical History Cardiovascular: Hypertension, Other Respiratory: None Neuro: Dementia Endocrine/Autoimmune: None - Past Surgical History Past Surgical History: No - Present Medications Home Medications: Ambulatory Orders Medication Instructions Recorded Confirmed Metoprolol Succinate 25 mg PO BID 06/07/20 Rosuvastatin Calcium 40 mg PO 06/07/20 DULoxetine [Cymbalta] 20 mg PO 04/05/23 Flecainide [Tambocar] 50 mg PO 04/05/23 Potassium Chloride 20 meq PO DAILY 3 Days #3 tab 04/05/23 QUEtiapine [SEROquel] 25 mg PO BID PRN #10 tablet 04/05/23 risperiDONE [RisperDAL] 0.25 mg PO HS 04/05/23 04/05/23 - Allergies Allergies/Adverse Reactions: Allergies Allergy/AdvReac Type Severity Reaction Status Date / Time No Known Drug Allergies Allergy Verified 04/05/23 22:07 - Social History Does the pt smoke?: No Smoking Status: Never smoker Does the pt drink ETOH?: Yes Does the pt have substance abuse?: No - Immunizations Immunizations are current?: Yes - POLST Patient has POLST: No PD ED PE NORMAL - Vitals Vital signs reviewed: Yes - General General: Alert and oriented X 3, No acute distress, Well developed/nourished - HEENT HEENT: PERRL, EOMI, Other (1 cm superficial laceration to mid occiput) Results - Vitals Vitals: Vital Signs - 24 hr 04/05/23 21:57 Temperature 36.7 C Heart Rate 59 L Respiratory 16 Rate Blood Pressure 128/78 O2 Saturation 100 Oxygen O2 Source Room air Procedures - Laceration (location) Scalp Length in cm: 0.5 Wound type: Linear Neurovascular status: Sensory intact, Motor intact, Vascular intact Skin layer closure: Jazlyn (1) Other: Patient tolerated well, No complications, Dressing applied, Tetanus booster given PD Medical Decision Making - ED course ED course: 82-year-old woman presented with bleeding from superficial laceration to scalp sustained earlier today. Staple placed without issue. Return precautions given. Plan to have her removed in 7 to 14 days Departure - Departure Disposition: 01 Home, Self Care Clinical Impression: Scalp laceration Condition: Stable Instructions: ED Laceration Scalp Stitch Or Stap Comments: You had 1 staple placed in your scalp that should be removed in 7 days. Please Keep dry for 48 hours and then monitor for signs of infection thereafter. Return to the emergency department if you have other concerns.
[2023-04-05] MEDS ORDERED: TETANUS/DIPHTHERIA/PERTUSSIS 0.5 ML SYRINGE IM ONE (22:26)
[2023-04-05] MEDS ORDERED: TETANUS/DIPHTHERIA TOXOID 0.5 ML SYRINGE IM ONE (23:09)
== END 2023-04-05 23:26 | disposition home or self-care (01) ==
LOC: ED 21:42
DX: S01.01XA Laceration without foreign body of scalp, initial encounter (principal); W01.0XXA Fall on same level from slipping, tripping and stumbling without subsequent striking against object, initial encounter; Y93.02 Activity, running; Y92.009 Unspecified place in unspecified non-institutional (private) residence as the place of occurrence of the external cause; E87.6 Hypokalemia; M25.511 Pain in right shoulder; M50.33 Other cervical disc degeneration, cervicothoracic region; G30.9 Alzheimer's disease, unspecified; F02.B18 Dementia in other diseases classified elsewhere, moderate, with other behavioral disturbance
CPT/HCPCS: 12001; 36415; 70450; 71045; 72125; 73030; 80053; 83690; 85025; 90714; 90715; 99284; A9270

== ENCOUNTER 2023-04-08 09:21 | Outpatient (CLI) | payer MEDICARE, OTHER | END 2023-04-08 09:22 | disposition critical access hospital (66) | LOC: EMS 09:21 | DX: Z04.6 Encounter for general psychiatric examination, requested by authority (principal); F03.90 Unspecified dementia, unspecified severity, without behavioral disturbance, psychotic disturbance, mood disturbance, and anxiety | CPT/HCPCS: A0425; A0429 ==

== ENCOUNTER 2023-04-08 09:37 | Emergency (ER) | payer MEDICARE ==
[2023-04-08] MEDS ORDERED: SODIUM CHLORIDE 0.9% 1,000 ML IV STA (09:48)
--- NOTE | 2023-04-08 09:55 | ED Physician Documentation ---
History of Present Illness - Stated complaint Stated Complaint: AMS - Chief complaint Chief Complaint: General - History obtained from History obtained from: Patient, Family, EMS - Additonal information Additional information: The patient sent to the emergency department via EMS after eloping from her home this afternoon. The patient lives with her family, although is unclear exactly how long she has lived with them. The patient states that she has only been with them about a month, and medics state they met her for the first time a couple of days ago when she did the same thing. Family is not here initially to provide further information. The patient apparently has some degree of dementia and was found to have eloped from her house. The family became concerned and called EMS when they could not find the patient immediately. Patient was found wandering and was picked up by EMS, upon which she seemed to be fairly appropriate and coherent. She recognized her family and denied any concerns or issues. The family wanted her sent here because the patient did the same thing a couple of days ago and they are concerned that they are not going to be able to keep her safe at home. She has an appointment coming up in 4 days with her primary doctor and prior to this apparently has been fine at home. The patient did have a fall when she walked off a couple of days ago and at that time, had a head CT and a posterior scalp laceration that was stapled. No focal neurologic deficits since. The patient denies any falls today and denies any pain anywhere. She was ambulatory without difficulty per medics. PD PAST MEDICAL HISTORY - Past Medical History Cardiovascular: Hypertension, Other Respiratory: None Neuro: Dementia Endocrine/Autoimmune: None - Past Surgical History Past Surgical History: No - Present Medications Home Medications: Ambulatory Orders Medication Instructions Recorded Confirmed Metoprolol Succinate 25 mg PO BID 06/07/20 Rosuvastatin Calcium 40 mg PO 06/07/20 DULoxetine [Cymbalta] 20 mg PO 04/05/23 Flecainide [Tambocar] 50 mg PO 04/05/23 Potassium Chloride 20 meq PO DAILY 3 Days #3 tab 04/05/23 QUEtiapine [SEROquel] 25 mg PO BID PRN #10 tablet 04/05/23 risperiDONE [RisperDAL] 0.25 mg PO HS 04/05/23 04/05/23 diazePAM [Valium] 5 - 10 mg PO TID PRN #20 tablet 04/08/23 - Allergies Allergies/Adverse Reactions: Allergies Allergy/AdvReac Type Severity Reaction Status Date / Time No Known Drug Allergies Allergy Verified 04/08/23 09:44 - Social History Does the pt smoke?: No Smoking Status: Never smoker Does the pt drink ETOH?: Yes Does the pt have substance abuse?: No - Immunizations Immunizations are current?: Yes - POLST Patient has POLST: No PD ED PE NORMAL - Vitals Vital signs reviewed: Yes - General General: No acute distress, Well developed/nourished, Other (Alert, pleasant, appropriate.) - HEENT HEENT: PERRL, EOMI, Moist mucous membranes, Other (Healing scalp laceration with scabbing and stable in place.) - Neck Neck: Supple, no meningeal sign, No bony TTP - Cardiac Cardiac: RRR, No murmur, Strong equal pulses - Respiratory Respiratory: No respiratory distress, Clear bilaterally - Abdomen Abdomen: Soft, Non tender, Non distended - Back Back: No CVA TTP, No spinal TTP - Derm Derm: Normal color, Warm and dry, No rash - Extremities Extremities: No deformity, Other (.Good range of motion of all 4 extremities no pain or instability of the pelvis. No hip tenderness on either side.) - Neuro Neuro: Other - Psych Psych: Normal mood, Normal affect Results - Vitals Vitals: Oxygen O2 Source Room air - Labs Labs: Laboratory Tests 04/08/23 04/08/23 04/08/23 10:10 10:25 10:25 WBC 5.6 RBC 3.60 L Hgb 12.1 Hct 35.4 L MCV 98.3 MCH 33.6 H MCHC 34.2 RDW 11.6 L Plt Count 184 MPV 9.7 Neut # (Auto) 4.1 Lymph # (Auto) 0.9 L [place] # (Auto) 0.5 Eos # (Auto) 0.1 Baso # (Auto) 0.0 Absolute Nucleated RBC 0.00 Nucleated RBC % 0.0 Sodium 137 Potassium 3.0 L Chloride 99 L Carbon Dioxide 24 Anion Gap 14.0 H BUN 8 Creatinine 0.7 Estimated GFR (MDRD) 80 L Glucose 89 Calcium 8.3 L Total Bilirubin 0.6 AST 38 ALT 38 Alkaline Phosphatase 45 Total Protein 6.1 L Albumin 3.6 Globulin 2.5 Albumin/Globulin Ratio 1.4 Lipase 45 TSH 2.11 Urine Color Urine Clarity Urine pH Ur Specific [place] Urine Protein Urine Glucose (UA) Urine Ketones Urine Occult Blood Urine Nitrite Urine Bilirubin Urine Urobilinogen Ur Leukocyte Esterase Ur Microscopic Review Urine Culture Comments 04/08/23 11:02 WBC RBC Hgb Hct MCV MCH MCHC RDW Plt Count MPV Neut # (Auto) Lymph # (Auto) [place] # (Auto) Eos # (Auto) Baso # (Auto) Absolute Nucleated RBC Nucleated RBC % Sodium Potassium Chloride Carbon Dioxide Anion Gap BUN Creatinine Estimated GFR (MDRD) Glucose Calcium Total Bilirubin AST ALT Alkaline Phosphatase Total Protein Albumin Globulin Albumin/Globulin Ratio Lipase TSH Urine Color YELLOW Urine Clarity CLEAR Urine pH 7.0 Ur Specific [place] 1.010 Urine Protein NEGATIVE Urine Glucose (UA) NEGATIVE Urine Ketones NEGATIVE Urine Occult Blood NEGATIVE Urine Nitrite NEGATIVE Urine Bilirubin NEGATIVE Urine Urobilinogen 0.2 (NORMAL) Ur Leukocyte Esterase NEGATIVE Ur Microscopic Review NOT INDICATED Urine Culture Comments NOT INDICATED PD Medical Decision Making - ED course Complexity details: reviewed results, re-evaluated patient, considered differential, d/w patient ED course: The patient was treated with IV fluids and worked up with laboratory studies and urinalysis. The patient had been worked up for her injuries from her fall on April 05 when she was last seen here, including with CT scans of the brain and C- spine, and x-rays of the chest and shoulder, all of which had been unremarkable. Patient had laboratory studies including CBC and ER abdominal panel performed today as well as a urinalysis. All were ordered and reviewed by me and found to be unremarkable. I discussed at length with the patient's daughter the situation. She stated that they actually had been able to see the patient runoff but because the patient had resisted being brought back home before, which had resulted in the fall, The daughter stated that her did not try to stop the patient this time but rather just followed her to be sure she would not be hurt and then called EMS. The daughter stated that she would keep working with the primary doctor to try to come up with a workable plan. I have prescribed a little bit of anxiolysis to try to help the patient and family through the next several days before she sees her PCP. We have discussed the usual indications for return. Departure - Departure Disposition: 01 Home, Self Care Clinical Impression: Dementia Qualifiers: Dementia type: unspecified type Dementia severity: moderate Dementia behavioral or psychological symptom: without behavioral, psychotic, or mood disturbance or anxiety Qualified Code(s): F03.B0 - Unspecified dementia, moderate, without behavioral disturbance, psychotic disturbance, mood disturbance, and anxiety Condition: Stable Instructions: ED Confusion, ED Dementia Caregiver Support Prescriptions: diazePAM [Valium] 5 - 10 mg PO TID PRN #20 tablet PRN Reason: Anxiety Comments: Your test today look good. You were found to have a mildly decreased potassium, but otherwise, your blood work looked good. We have considered the possibility of thyroid derangement, but your thyroid stimulating hormone levels are normal. You do not have a urinary tract infection. At this point in time, we will start you on some temporary medicine to help with the anxiety and agitation that is causing you to want to run away from home. This medication is only temporary because your primary doctor may decide that here she would like to put you on something else to help with the symptoms. Please do not miss your appointment on with your primary doctor, as it is very important in deciding what the best living situation will be for you as well as what medication may help you at home in the long-term. Discharge Date/Time: 04/08/23 12:44
[2023-04-08 10:21] LABS: BASOPHILS % (AUTO) 0.4 %; EOSINOPHILS # (AUTO) 0.1 10^3/uL (0.0-0.7); EOSINOPHILS % (AUTO) 1.3 %; HCT - HEMATOCRIT 35.4 % (37.0-47.0); HGB - HEMOGLOBIN 12.1 g/dL (12.0-16.0); LYMPHOCYTES # (AUTO) 0.9 10^3/uL (1.5-3.5); LYMPHOCYTES % (AUTO) 15.6 %; MEAN CORPUSCULAR HEMOGLOBIN 33.6 pg (27.0-31.0); MEAN CORPUSCULAR HGB CONC 34.2 g/dL (32.0-36.0); MEAN CORPUSCULAR VOLUME 98.3 fL (81.0-99.0); MEAN PLATELET VOLUME 9.7 fL (7.9-10.8); MONOCYTES # (AUTO) 0.5 10^3/uL (0.0-1.0); MONOCYTES % (AUTO) 8.8 %; NEUTROPHILS # (AUTO) 4.1 10^3/uL (1.5-6.6); NEUTROPHILS % (AUTO) 73.4 %; PLT - PLATELET COUNT 184 10^3/uL (130-450); RED CELL DISTRIBUTION WIDTH 11.6 % (12.0-15.0); WHITE BLOOD COUNT 5.6 x10^3/uL (4.8-10.8)
[2023-04-08 11:07] LABS: ALBUMIN 3.6 g/dL (3.2-5.5); ALBUMIN/GLOBULIN RATIO 1.4 (1.0-2.2); BILIRUBIN,TOTAL 0.6 mg/dL (0.2-1.0); CALCIUM 8.3 mg/dL (8.5-10.3); CREATININE 0.7 mg/dL (0.4-1.0); TOTAL PROTEIN 6.1 g/dL (6.7-8.2)
[2023-04-08 11:13] LABS: BILIRUBIN,URINE NEGATIVE (NEGATIVE); GLUCOSE, URINE (UA) NEGATIVE (NEGATIVE); KETONES,URINE (UA) NEGATIVE (NEGATIVE); LEUKOCYTE ESTERASE, URINE NEGATIVE (NEGATIVE); NITRITE,URINE NEGATIVE (NEGATIVE); OCCULT BLOOD,URINE NEGATIVE (NEGATIVE); PROTEIN,URINE NEGATIVE (NEGATIVE); UROBILINOGEN,URINE 0.2 (NORMAL) E.U./dL (NORMAL)
[2023-04-08] MEDS ORDERED: POTASSIUM CHLORIDE 20 MEQ TABLET PO STA (11:16)
[2023-04-08 11:33] LABS: CLARITY,URINE CLEAR (CLEAR)
[2023-04-08] MEDS ORDERED: diazePAM 5 MG TABLET PO STA (12:25)
[2023-04-08 12:45] VITALS: BP 144/71
== END 2023-04-08 12:44 | disposition home or self-care (01) ==
LOC: EDUNIT# → ED 09:37
DX: F03.B0 Unspecified dementia, moderate, without behavioral disturbance, psychotic disturbance, mood disturbance, and anxiety (principal); I10 Essential (primary) hypertension; Z79.899 Other long term (current) drug therapy
CPT/HCPCS: 36415; 80053; 81003; 83690; 84443; 85025; 96360; 99284; A9270; 81001; 87086

== ENCOUNTER 2023-04-11 16:46 | Outpatient (CLI) | payer MEDICARE | END 2023-04-11 23:59 | disposition critical access hospital (66) | LOC: EMS 16:46 | DX: R41.0 Disorientation, unspecified (principal); W17.81XA Fall down embankment (hill), initial encounter; Y92.007 Garden or yard of unspecified non-institutional (private) residence as the place of occurrence of the external cause | CPT/HCPCS: A0425; A0429 ==

== ENCOUNTER 2023-04-11 17:05 | Emergency (ER) | payer MEDICARE ==
--- NOTE | 2023-04-11 17:12 | ED Physician Documentation ---
PD HPI HEAD INJURY - Stated complaint Stated Complaint: FALL - History obtained from History obtained from: Patient, EMS - Additional information Additional information: This is an 82-year-old woman with recent onset of dementia, living with family. She was outside and "running from bad guys" which were of course not real. She fell down a 3 foot embankment and hurt her head and complains of headache. There is no other clear loss of consciousness and EMS reports that she is at her baseline per family. I saw the patient on arrival, at 5:06 PM. PD PAST MEDICAL HISTORY - Past Medical History Cardiovascular: Hypertension, Other Respiratory: None Neuro: Dementia Endocrine/Autoimmune: None - Past Surgical History Past Surgical History: No - Present Medications Home Medications: Ambulatory Orders Medication Instructions Recorded Confirmed Metoprolol Succinate 25 mg PO BID 06/07/20 Rosuvastatin Calcium 40 mg PO 06/07/20 DULoxetine [Cymbalta] 20 mg PO 04/05/23 Flecainide [Tambocar] 50 mg PO 04/05/23 Potassium Chloride 20 meq PO DAILY 3 Days #3 tab 04/05/23 QUEtiapine [SEROquel] 25 mg PO BID PRN #10 tablet 04/05/23 risperiDONE [RisperDAL] 0.25 mg PO HS 04/05/23 04/05/23 diazePAM [Valium] 5 - 10 mg PO TID PRN #20 tablet 04/08/23 QUEtiapine [SEROquel] 25 mg PO BID PRN #60 tablet 04/11/23 risperiDONE [RisperDAL] 1 mg PO QPM #60 tablet 04/11/23 - Allergies Allergies/Adverse Reactions: Allergies Allergy/AdvReac Type Severity Reaction Status Date / Time No Known Drug Allergies Allergy Verified 04/08/23 09:44 - Social History Does the pt smoke?: No Smoking Status: Never smoker Does the pt drink ETOH?: Yes Does the pt have substance abuse?: No - Immunizations Immunizations are current?: Yes - POLST Patient has POLST: No PD ED PE NORMAL - Vitals Vital signs reviewed: Yes - General General: No acute distress, Other (She alert and oriented to person and place and events but not time) - HEENT HEENT: PERRL, EOMI, Other (Scrapes on the nose, occipital hematoma.) - Neck Neck: No bony TTP, Other (She is in a c-collar which is maintained pending imaging despite no bony tenderness because of age) - Cardiac Cardiac: RRR, No murmur - Respiratory Respiratory: No respiratory distress, Clear bilaterally - Abdomen Abdomen: Normal bowel sounds, Soft, Non tender - Derm Derm: Normal color, Warm and dry - Extremities Extremities: Other - Neuro Eye Opening: Spontaneous Motor: Obeys Commands Verbal: Confused GCS Score: 14 Results - Vitals Vitals: Vital Signs - 24 hr 04/11/23 04/11/23 04/11/23 17:12 17:30 19:09 Temperature 37.3 C Heart Rate 70 71 72 Respiratory 16 16 16 Rate Blood Pressure 130/72 150/88 H 134/98 H O2 Saturation 96 98 96 Oxygen O2 Source Room air PD Medical Decision Making - ED course ED course: C-collar removed after completion of CT imaging at 1753 82-year-old woman living with family with dementia with some psychosis and 3 recent falls lately mostly related to running from bad guys. Recommended that they stop benzodiazepine use and I have increased Risperdal to 1 mg at night from half a milligram at night and refilled her Seroquel. Counseled daughter on next steps to help her get placed. Departure - Departure Disposition: 01 Home, Self Care Clinical Impression: Ground-level fall, Scalp hematoma, Alzheimer's dementia with agitation Condition: Good Record reviewed to determine appropriate education?: Yes Instructions: ED Dementia Caregiver Support Prescriptions: risperiDONE [RisperDAL] 1 mg PO QPM #60 tablet QUEtiapine [SEROquel] 25 mg PO BID PRN #60 tablet PRN Reason: Agitation Comments: I sent the prescription electronically to [facility] in [place]. As discussed I would recommend going up on the respite onto 1 mg at bedtime and continue the Seroquel at the current dose. Continue with your efforts to work with [facility] to sign her up for Medicaid, and working with Dr. Toro's office for potential [facility] psych placement. Discharge Date/Time: 04/11/23 19:36
--- NOTE | 2023-04-11 17:33 | CT Report ---
PROCEDURE: CERVICAL SPINE WO INDICATIONS: Neck trauma, midline tenderness TECHNIQUE: Noncontrast 3 mm thick sections acquired from the skull base to the T4 level. Sagittal and coronal r eformats were then constructed. For radiation dose reduction, the following was used: automated exp osure control, adjustment of mA and/or kV according to patient size. COMPARISON: 04/05/2023 FINDINGS: Image quality: Excellent. Bones: No fractures or dislocations. Visualized superior ribs are intact. Degenerative disc diseas e is seen at multiple levels. Multilevel facet hypertrophy. Soft tissues: Prevertebral soft tissues are normal in thickness. No paravertebral hematomas. No ap ical pneumothoraces. IMPRESSION: 1. No acute abnormality of the cervical spine. 2. Multilevel degenerative disc disease of the cervical spine. Reviewed by: Salvatore Barksdale on 04/11/2023 5:32 PM PDT Approved by: Salvatore Barksdale on 04/11/2023 5:32 PM PDT Station ID: [id number]
--- NOTE | 2023-04-11 17:40 | CT Report ---
PROCEDURE: HEAD WO INDICATIONS: Head trauma, abnormal mental status TECHNIQUE: Noncontrast 4.5 mm thick angled axial sections acquired from the foramen magnum to the vertex. For r adiation dose reduction, the following was used: automated exposure control, adjustment of mA and/or kV according to patient size. COMPARISON: None. FINDINGS: Image quality: Excellent. CSF spaces: Basal cisterns are patent. No extra-axial fluid collections. Ventricles are normal in size and shape. Subcortical and periventricular hypodensities are consistent with microvascular ische robert disease and age-related cerebral volume loss. Brain: No midline shift. No intracranial masses or hemorrhage. Ortega-white matter interface is norm al. Skull and face: Calvarium and visualized facial bones are intact, without suspicious lesions. Sinuses: Visualized sinuses and mastoids are clear. IMPRESSION: 1. No acute intracranial abnormality. 2. Microvascular ischemic disease and age-related cerebral volume loss. Reviewed by: Salvatore Barksdale on 04/11/2023 5:38 PM PDT Approved by: Salvatore Barksdale on 04/11/2023 5:38 PM PDT Station ID: [id number]
[2023-04-11] MEDS ORDERED: ACETAMINOPHEN 500 MG TABLET PO STA (17:55)
[2023-04-11 19:16] VITALS: BP 134/98
== END 2023-04-11 19:36 | disposition home or self-care (01) ==
LOC: EDUNIT# → ED 17:05
DX: S00.03XA Contusion of scalp, initial encounter (principal); S00.31XA Abrasion of nose, initial encounter; W17.89XA Other fall from one level to another, initial encounter; Y93.02 Activity, running; F02.811 Dementia in other diseases classified elsewhere, unspecified severity, with agitation; G30.9 Alzheimer's disease, unspecified
CPT/HCPCS: 70450; 72125; 99284; A9270

== ENCOUNTER 2023-04-12 14:21 | Outpatient (CLI) | payer MEDICARE, OTHER | END 2023-04-12 14:22 | disposition home or self-care (01) | LOC: LAB.N 14:21 | PROVIDERS: ATTEND Family Medicine | DX: F22 Delusional disorders (principal); F33.2 Major depressive disorder, recurrent severe without psychotic features; I63.9 Cerebral infarction, unspecified; F01.53 Vascular dementia, unspecified severity, with mood disturbance; Z20.822 Contact with and (suspected) exposure to COVID-19 ==

== ENCOUNTER 2023-04-17 11:12 | Outpatient (CLI) | payer MEDICARE | END 2023-04-17 23:59 | disposition critical access hospital (66) | LOC: EMS 11:12 | DX: F03.92 Unspecified dementia, unspecified severity, with psychotic disturbance (principal); Z74.3 Need for continuous supervision | CPT/HCPCS: A0425; A0429 ==

== ENCOUNTER 2023-04-17 11:50 | Emergency (ER) | payer MEDICARE, OTHER ==
--- NOTE | 2023-04-17 12:02 | ED Physician Documentation ---
History of Present Illness - Stated complaint Stated Complaint: AGITATION - Chief complaint Chief Complaint: General - History obtained from History obtained from: Patient, EMS - History of Present Illness Pain level max: 0 Pain level now: 0 - Additonal information Additional information: Patient with dementia, states doesn't know why she is here. EMS states that she was agitated at home today and so family called 911. No other information available currently. Patient's daughter did arrive in the emergency department. She states that her mother became quite agitated at home today. She was not recognizing her family members. She became aggressive. She has been on Seroquel and Risperdal at home. Has not seen a psychiatrist. Does not appear to be on any medications for dementia. No fevers. No chills. No trauma. She has had several episodes of running away from the house over the past few weeks. Review of Systems Unable to obtain: Dementia Constitutional: denies: Fever GI: denies: Vomiting Musculoskeletal: denies: Neck pain, Back pain Neurologic: denies: Headache PD PAST MEDICAL HISTORY - Past Medical History Cardiovascular: Hypertension, Other Respiratory: None Neuro: Dementia Endocrine/Autoimmune: None - Past Surgical History Past Surgical History: No - Present Medications Home Medications: Ambulatory Orders Medication Instructions Recorded Confirmed Metoprolol Succinate 25 mg PO BID 06/07/20 Rosuvastatin Calcium 40 mg PO 06/07/20 DULoxetine [Cymbalta] 20 mg PO 04/05/23 Flecainide [Tambocar] 50 mg PO 04/05/23 Potassium Chloride 20 meq PO DAILY 3 Days #3 tab 04/05/23 QUEtiapine [SEROquel] 25 mg PO BID PRN #10 tablet 04/05/23 risperiDONE [RisperDAL] 0.25 mg PO HS 04/05/23 04/05/23 diazePAM [Valium] 5 - 10 mg PO TID PRN #20 tablet 04/08/23 QUEtiapine [SEROquel] 25 mg PO BID PRN #60 tablet 04/11/23 risperiDONE [RisperDAL] 1 mg PO QPM #60 tablet 04/11/23 - Allergies Allergies/Adverse Reactions: Allergies Allergy/AdvReac Type Severity Reaction Status Date / Time No Known Drug Allergies Allergy Verified 04/17/23 12:01 - Social History Does the pt smoke?: No Smoking Status: Never smoker Does the pt drink ETOH?: Yes Does the pt have substance abuse?: No - Immunizations Immunizations are current?: Yes - POLST Patient has POLST: No PD ED PE NORMAL - Vitals Vital signs reviewed: Yes - General General: No acute distress, Well developed/nourished, Other (alert, oriented to person and place. pleasant) - HEENT HEENT: Atraumatic, PERRL, Moist mucous membranes - Neck Neck: Supple, no meningeal sign - Cardiac Cardiac: RRR, Strong equal pulses - Respiratory Respiratory: No respiratory distress, Clear bilaterally - Abdomen Abdomen: Soft, Non tender, Non distended - Back Back: No spinal TTP - Derm Derm: Warm and dry, No rash - Extremities Extremities: No edema - Neuro Neuro: Other (alert, pleasant) Results - Vitals Vitals: Vital Signs - 24 hr 04/17/23 04/17/23 04/17/23 11:55 12:00 14:17 Temperature 36.6 C Heart Rate 60 57 L 60 Respiratory 16 16 16 Rate Blood Pressure 143/81 H 154/86 H 157/75 H O2 Saturation 100 100 96 04/17/23 15:25 Temperature Heart Rate 60 Respiratory 16 Rate Blood Pressure 161/84 H O2 Saturation 97 Oxygen O2 Source Room air - Labs Labs: Laboratory Tests 04/17/23 04/17/23 04/17/23 12:05 12:05 12:05 WBC 4.2 L RBC 3.35 L Hgb 11.3 L Hct 32.8 L MCV 97.9 MCH 33.7 H MCHC 34.5 RDW 11.6 L Plt Count 165 MPV 9.4 Neut # (Auto) 2.9 Lymph # (Auto) 0.9 L [place] # (Auto) 0.3 Eos # (Auto) 0.1 Baso # (Auto) 0.0 Absolute Nucleated RBC 0.00 Nucleated RBC % 0.0 Sodium 139 Potassium 3.8 Chloride 107 Carbon Dioxide 26 Anion Gap 6.0 BUN 10 Creatinine 0.8 Estimated GFR (MDRD) 69 L Glucose 84 Calcium 9.2 Magnesium 1.9 Total Bilirubin 0.4 AST 32 ALT 35 Alkaline Phosphatase 48 Total Creatine Kinase 111 Total Protein 6.1 L Albumin 3.7 Globulin 2.4 Albumin/Globulin Ratio 1.5 Lipase 41 TSH 1.61 Urine Color Urine Clarity Urine pH Ur Specific [place] Urine Protein Urine Glucose (UA) Urine Ketones Urine Occult Blood Urine Nitrite Urine Bilirubin Urine Urobilinogen Ur Leukocyte Esterase Ur Microscopic Review Urine Culture Comments Salicylates < 6.0 Urine Opiates Screen Ur Oxycodone Screen Urine Methadone Screen Ur Propoxyphene Screen Acetaminophen < 10 L Ur Barbiturates Screen Ur Tricyclics Screen Ur Phencyclidine Scrn Ur Amphetamine Screen U Methamphetamines Scrn U Benzodiazepines Scrn Urine Cocaine Screen U Cannabinoids Screen Ethyl Alcohol < 5.0 04/17/23 13:25 WBC RBC Hgb Hct MCV MCH MCHC RDW Plt Count MPV Neut # (Auto) Lymph # (Auto) [place] # (Auto) Eos # (Auto) Baso # (Auto) Absolute Nucleated RBC Nucleated RBC % Sodium Potassium Chloride Carbon Dioxide Anion Gap BUN Creatinine Estimated GFR (MDRD) Glucose Calcium Magnesium Total Bilirubin AST ALT Alkaline Phosphatase Total Creatine Kinase Total Protein Albumin Globulin Albumin/Globulin Ratio Lipase TSH Urine Color YELLOW Urine Clarity CLEAR Urine pH 6.5 Ur Specific [place] 1.015 Urine Protein NEGATIVE Urine Glucose (UA) NEGATIVE Urine Ketones NEGATIVE Urine Occult Blood NEGATIVE Urine Nitrite NEGATIVE Urine Bilirubin NEGATIVE Urine Urobilinogen 0.2 (NORMAL) Ur Leukocyte Esterase NEGATIVE Ur Microscopic Review NOT INDICATED Urine Culture Comments NOT INDICATED Salicylates Urine Opiates Screen NEGATIVE Ur Oxycodone Screen NEGATIVE Urine Methadone Screen NEGATIVE Ur Propoxyphene Screen NEGATIVE Acetaminophen Ur Barbiturates Screen NEGATIVE Ur Tricyclics Screen POSITIVE H Ur Phencyclidine Scrn NEGATIVE Ur Amphetamine Screen NEGATIVE U Methamphetamines Scrn NEGATIVE U Benzodiazepines Scrn POSITIVE H Urine Cocaine Screen NEGATIVE U Cannabinoids Screen NEGATIVE Ethyl Alcohol PD Medical Decision Making - ED course Complexity details: reviewed results, re-evaluated patient, considered differential, d/w patient, d/w family, d/w business analyst consultant ED course: No acute findings on CBC, chemistry or urinalysis. No evidence of infection. Social work was consulted. Social work came and talked with the family, the family called home placed and [facility] came to the emergency department and evaluated the patient. They feel she is appropriate for admission we [facility]. A telepsychiatry consult was placed, but no callback was ever received, therefore this will be canceled. We will continue the current medications and have her follow-up with [facility] for memory care placement. Family counseled regarding signs and symptoms for which I believe and urgent re-evaluation would be necessary. Family with good understanding of and agreement to plan and is comfortable going home at this time This document was made in part using voice recognition software. While efforts are made to proofread this document, sound alike and grammatical errors may occur. Departure - Departure Disposition: 01 Home, Self Care Clinical Impression: Dementia Qualifiers: Dementia type: unspecified type Dementia severity: unspecified severity Dementia behavioral or psychological symptom: with other behavioral disturbance Qualified Code(s): F03.918 - Unspecified dementia, unspecified severity, with other behavioral disturbance Condition: Stable Instructions: ED Dementia Caregiver Support Follow-Up: Rehan Bateman MD [Primary Care Provider] - Within 1 week Comments: Please go to [facility] tonight as planned. Please follow-up with your doctor for further care. Please return if you worsen. Discharge Date/Time: 04/17/23 15:26
[2023-04-17 12:10] LABS: BASOPHILS % (AUTO) 0.5 %; EOSINOPHILS # (AUTO) 0.1 10^3/uL (0.0-0.7); EOSINOPHILS % (AUTO) 1.2 %; HCT - HEMATOCRIT 32.8 % (37.0-47.0); HGB - HEMOGLOBIN 11.3 g/dL (12.0-16.0); LYMPHOCYTES # (AUTO) 0.9 10^3/uL (1.5-3.5); LYMPHOCYTES % (AUTO) 21.4 %; MEAN CORPUSCULAR HEMOGLOBIN 33.7 pg (27.0-31.0); MEAN CORPUSCULAR HGB CONC 34.5 g/dL (32.0-36.0); MEAN CORPUSCULAR VOLUME 97.9 fL (81.0-99.0); MEAN PLATELET VOLUME 9.4 fL (7.9-10.8); MONOCYTES # (AUTO) 0.3 10^3/uL (0.0-1.0); MONOCYTES % (AUTO) 7.6 %; NEUTROPHILS # (AUTO) 2.9 10^3/uL (1.5-6.6); NEUTROPHILS % (AUTO) 69.1 %; PLT - PLATELET COUNT 165 10^3/uL (130-450); RED BLOOD COUNT 3.35 10^6/uL (4.20-5.40); RED CELL DISTRIBUTION WIDTH 11.6 % (12.0-15.0); WHITE BLOOD COUNT 4.2 x10^3/uL (4.8-10.8)
[2023-04-17 12:29] LABS: ACETAMINOPHEN < 10 ug/mL (10-30); ALBUMIN 3.7 g/dL (3.2-5.5); ALBUMIN/GLOBULIN RATIO 1.5 (1.0-2.2); ALKALINE PHOSPHATASE 48 IU/L (42-121); ALT ALANINE AMINOTRANSFERASE 35 IU/L (10-60); AST ASPARTATE AMINOTRANSFERASE 32 IU/L (10-42); BILIRUBIN,TOTAL 0.4 mg/dL (0.2-1.0); BUN - BLOOD UREA NITROGEN 10 mg/dL (6-20); CALCIUM 9.2 mg/dL (8.5-10.3); CARBON DIOXIDE - CO2 26 mmol/L (21-32); CHLORIDE 107 mmol/L (101-111); CK- CREATINE KINASE 111 IU/L (22-269); CREATININE 0.8 mg/dL (0.4-1.0); ETOH - ETHANOL < 5.0 mg/dL; GFR - MDRD 69 (>89); GLUCOSE 84 mg/dL (70-100); LIPASE 41 U/L (22-51); MAGNESIUM 1.9 mg/dL (1.7-2.8); POTASSIUM 3.8 mmol/L (3.5-5.0); SALICYLATE < 6.0 mg/dL; SODIUM 139 mmol/L (135-145); TOTAL PROTEIN 6.1 g/dL (6.7-8.2)
[2023-04-17 13:31] LABS: MUDS CUTOFF CONCENTRATIONS CUTOFF CONC BELOW:
[2023-04-17 13:35] LABS: BILIRUBIN,URINE NEGATIVE (NEGATIVE); GLUCOSE, URINE (UA) NEGATIVE (NEGATIVE); KETONES,URINE (UA) NEGATIVE (NEGATIVE); LEUKOCYTE ESTERASE, URINE NEGATIVE (NEGATIVE); NITRITE,URINE NEGATIVE (NEGATIVE); OCCULT BLOOD,URINE NEGATIVE (NEGATIVE); PH,URINE 6.5 PH (5.0-7.5); PROTEIN,URINE NEGATIVE (NEGATIVE); UROBILINOGEN,URINE 0.2 (NORMAL) E.U./dL (NORMAL)
[2023-04-17 13:37] LABS: CLARITY,URINE CLEAR (CLEAR)
[2023-04-17 13:45] LABS: AMPHETAMINE SCREEN,URINE NEGATIVE (NEGATIVE); BARBITURATE SCREEN,UR NEGATIVE (NEGATIVE); BENZODIAZEPINES SCREEN, URINE POSITIVE (NEGATIVE); COCAINE SCREEN URINE NEGATIVE (NEGATIVE); METHADONE SCREEN, URINE NEGATIVE (NEGATIVE); METHAMPHETAMINES SCREEN, URINE NEGATIVE (NEGATIVE); OPIATE SCREEN, URINE NEGATIVE (NEGATIVE); OXYCODONE SCREEN, URINE NEGATIVE (NEGATIVE); PROPOXYPHENE SCREEN, URINE NEGATIVE (NEGATIVE); THC CANNABINOID SCREEN, URINE NEGATIVE (NEGATIVE); TRICYCLIC ANTIDEPRESSANT,URINE POSITIVE (NEGATIVE)
[2023-04-17 15:27] VITALS: BP 161/84
== END 2023-04-17 15:26 | disposition home or self-care (01) ==
LOC: ED 11:50
DX: F03.918 Unspecified dementia, unspecified severity, with other behavioral disturbance (principal); I10 Essential (primary) hypertension
CPT/HCPCS: 36415; 80053; 80306; 80307; 81003; 82550; 83690; 83735; 84443; 85025; 99283; G0480; 80320; 80329; 81001; 87086

== ENCOUNTER 2023-05-17 08:35 | Outpatient (CLI) | payer MEDICARE, OTHER ==
[2023-05-17 12:10] LABS: CREATININE 0.9 mg/dL (0.4-1.0); POTASSIUM 2.9 mmol/L (3.5-5.0)
== END 2023-05-17 08:36 | disposition home or self-care (01) ==
LOC: LAB.N 08:35
PROVIDERS: ATTEND Family Medicine
DX: E87.6 Hypokalemia (principal)
CPT/HCPCS: 36415; 80048

== ENCOUNTER 2023-09-17 11:49 | Outpatient (CLI) | payer MEDICARE | END 2023-09-17 11:50 | disposition critical access hospital (66) | LOC: EMS 11:49 | DX: R68.84 Jaw pain (principal); S09.93XA Unspecified injury of face, initial encounter; Y04.2XXA Assault by strike against or bumped into by another person, initial encounter; Y92.099 Unspecified place in other non-institutional residence as the place of occurrence of the external cause | CPT/HCPCS: A0425; A0429 ==

== ENCOUNTER 2023-09-17 14:32 | Outpatient (CLI) | payer MEDICARE | END 2023-09-17 14:33 | disposition home or self-care (01) | LOC: EMS 14:32 | PROVIDERS: ATTEND Emergency Medicine | DX: F03.90 Unspecified dementia, unspecified severity, without behavioral disturbance, psychotic disturbance, mood disturbance, and anxiety (principal); R41.0 Disorientation, unspecified | CPT/HCPCS: A0425; A0428 ==

== ENCOUNTER 2023-11-16 14:31 | Outpatient (CLI) | payer MEDICARE ==
--- NOTE | 2023-11-18 11:35 | XRAY Report ---
PROCEDURE: Hand 3+V RT INDICATIONS: HAND SWELLING TECHNIQUE: 3 views of the hand(s) acquired. COMPARISON: None. FINDINGS: Bones: No fractures or dislocations. No osseous erosion, ostial lysis or periosteal reaction. Modera te first CMC, MCP and IP joint space narrowing and juxta-articular osteophytosis. There is mild sublu xation at the first MCP joint. No osseous erosion, ostial lysis or periosteal reaction. The second th rough fifth digits demonstrate diffuse minimal to mild joint space narrowing. No suspicious bony lesi ons. Diffuse osseous mineralization. Soft tissues: No suspicious soft tissue calcifications or masses. Soft tissue swelling in the radi al aspect of the hand. No radiopaque foreign body. IMPRESSION: 1.No acute bony abnormality. If there is high clinical suspicion for a radiographically occult fractu re, consider repeat imaging in 7-10 days or cross-sectional imaging. 2.No radiographic evidence of osteomyelitis. 3.Moderate degenerative changes of the first CMC joint and first phalanx. Inflammatory arthritis is n ot excluded. Reviewed by: Avinash Samano MD on 11/18/2023 11:33 AM PST Approved by: Avinash Samano MD on 11/18/2023 11:33 AM PST Station ID: [id number]
== END 2023-11-16 14:32 | disposition home or self-care (01) ==
LOC: DI 14:31
PROVIDERS: ATTEND Nurse Practitioner Family
DX: M18.11 Unilateral primary osteoarthritis of first carpometacarpal joint, right hand (principal); M19.041 Primary osteoarthritis, right hand

== ENCOUNTER 2023-11-29 13:51 | Outpatient (CLI) | payer MEDICARE | END 2023-11-29 13:52 | disposition critical access hospital (66) | LOC: EMS 13:51 | DX: R45.1 Restlessness and agitation (principal); R46.89 Other symptoms and signs involving appearance and behavior | CPT/HCPCS: A0425; A0429 ==

== ENCOUNTER 2023-11-29 14:06 | Emergency (ER) | payer MEDICARE ==
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
[2023-11-29 15:23] LABS: BILIRUBIN,URINE NEGATIVE (NEGATIVE); GLUCOSE, URINE (UA) NEGATIVE (NEGATIVE); KETONES,URINE (UA) NEGATIVE (NEGATIVE); LEUKOCYTE ESTERASE, URINE NEGATIVE (NEGATIVE); NITRITE,URINE NEGATIVE (NEGATIVE); OCCULT BLOOD,URINE NEGATIVE (NEGATIVE); PROTEIN,URINE NEGATIVE (NEGATIVE); UROBILINOGEN,URINE 1 (NORMAL) E.U./dL (NORMAL)
[2023-11-29 15:40] LABS: CLARITY,URINE CLEAR (CLEAR); RBC,URINE 0-5 /HPF (0-5)
[2023-11-29 15:48] LABS: WBC,URINE 0-3 /HPF (0-5)
[2023-11-29 15:49] LABS: SQUAMOUS EPITHELIAL CELL,UR NONE SEEN (<= Few)
[2023-11-29 15:50] LABS: BACTERIA,URINE Rare /HPF (None Seen)
[2023-11-29 16:18] VITALS: BP 150/87; O2SAT 99
== END 2023-11-29 16:53 | disposition home or self-care (01) ==
LOC: EDUNIT# → ED 14:06
DX: F03.911 Unspecified dementia, unspecified severity, with agitation (principal); I10 Essential (primary) hypertension
CPT/HCPCS: 81001; 87086; 99283

== ENCOUNTER 2023-11-29 19:00 | Outpatient (CLI) | payer MEDICARE | END 2023-11-29 19:01 | disposition critical access hospital (66) | LOC: EMS 19:00 | DX: F03.90 Unspecified dementia, unspecified severity, without behavioral disturbance, psychotic disturbance, mood disturbance, and anxiety (principal); R45.6 Violent behavior | CPT/HCPCS: A0425; A0429 ==

== ENCOUNTER 2023-11-29 19:43 | Emergency (ER) | payer MEDICARE ==
[2023-11-29 20:06] VITALS: BP 107/56; O2SAT 100
[2023-11-29] MEDS ORDERED: QUEtiapine 25 MG TABLET PO STA ×2 (20:07→21:48)
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
== END 2023-11-29 22:40 | disposition home or self-care (01) ==
LOC: EDSEX → EDUNIT# → ED 19:43
DX: F03.C0 Unspecified dementia, severe, without behavioral disturbance, psychotic disturbance, mood disturbance, and anxiety (principal); I10 Essential (primary) hypertension
CPT/HCPCS: 81001; 87086; 99283; 99284; A9270

== ENCOUNTER 2023-11-29 22:42 | Outpatient (CLI) | payer MEDICARE | END 2023-11-29 22:43 | disposition home or self-care (01) | LOC: EMS 22:42 | PROVIDERS: ATTEND Nurse Practitioner | DX: F03.90 Unspecified dementia, unspecified severity, without behavioral disturbance, psychotic disturbance, mood disturbance, and anxiety (principal); R41.0 Disorientation, unspecified | CPT/HCPCS: A0425; A0428 ==

== ENCOUNTER 2024-01-25 11:23 | Outpatient (CLI) | payer MEDICARE | END 2024-01-25 11:24 | disposition critical access hospital (66) | LOC: EMS 11:23 | DX: R45.1 Restlessness and agitation (principal); R41.0 Disorientation, unspecified | CPT/HCPCS: A0425; A0429 ==

== ENCOUNTER 2024-01-25 11:38 | Emergency (ER) | payer MEDICARE ==
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
[2024-01-25] MEDS: QUEtiapine 25 MG TABLET PO STA (11:50)
[2024-01-25 12:38] LABS: BASOPHILS % (AUTO) 0.4 %; EOSINOPHILS # (AUTO) 0.1 10^3/uL (0.0-0.7); HCT - HEMATOCRIT 33.8 % (37.0-47.0); HGB - HEMOGLOBIN 11.5 g/dL (12.0-16.0); LYMPHOCYTES # (AUTO) 1.2 10^3/uL (1.5-3.5); LYMPHOCYTES % (AUTO) 17.9 %; MEAN CORPUSCULAR HEMOGLOBIN 33.2 pg (27.0-31.0); MEAN CORPUSCULAR VOLUME 97.7 fL (81.0-99.0); MEAN PLATELET VOLUME 9.4 fL (7.9-10.8); MONOCYTES # (AUTO) 0.5 10^3/uL (0.0-1.0); MONOCYTES % (AUTO) 7.5 %; NEUTROPHILS # (AUTO) 4.9 10^3/uL (1.5-6.6); NEUTROPHILS % (AUTO) 72.8 %; PLT - PLATELET COUNT 147 10^3/uL (130-450); RED BLOOD COUNT 3.46 10^6/uL (4.20-5.40); RED CELL DISTRIBUTION WIDTH 11.6 % (12.0-15.0); WHITE BLOOD COUNT 6.7 x10^3/uL (4.8-10.8)
[2024-01-25 13:05] LABS: ACETAMINOPHEN 7.7 ug/mL; ALBUMIN 4.2 g/dL (3.2-5.5); ALBUMIN/GLOBULIN RATIO 2.1 (1.0-2.2); ALKALINE PHOSPHATASE 58 IU/L (42-121); ALT ALANINE AMINOTRANSFERASE 11 IU/L (10-60); AST ASPARTATE AMINOTRANSFERASE 18 IU/L (10-42); BILIRUBIN,TOTAL 0.4 mg/dL (0.2-1.0); BUN - BLOOD UREA NITROGEN 17 mg/dL (6-20); CALCIUM 9.6 mg/dL (8.5-10.3); CARBON DIOXIDE - CO2 27 mmol/L (21-32); CHLORIDE 98 mmol/L (101-111); CK- CREATINE KINASE 105 IU/L (30-223); CREATININE 0.8 mg/dL (0.6-1.3); ETOH - ETHANOL < 10.0 mg/dL; GFR - MDRD 69 (>89); GLUCOSE 103 mg/dL (74-104); LIPASE 61 U/L (11-82); MAGNESIUM 1.7 mg/dL (1.7-2.3); POTASSIUM 4.5 mmol/L (3.5-4.5); SODIUM 130 mmol/L (135-145); TOTAL PROTEIN 6.2 g/dL (6.4-8.9)
[2024-01-25 13:06] LABS: THYROID STIMULATING HORMONE 1.71 uIU/mL (0.34-5.60)
[2024-01-25 13:22] LABS: SALICYLATE < 1.5 mg/dL
[2024-01-25] MEDS: KETAMINE 500 MG/10 ML VIAL IM STA ×2 (13:35→18:01)
[2024-01-25] MEDS: OLANZapine 10 MG VIAL IM STA (13:35)
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
[2024-01-25 13:46] LABS: BILIRUBIN,URINE NEGATIVE (NEGATIVE); GLUCOSE, URINE (UA) NEGATIVE (NEGATIVE); KETONES,URINE (UA) NEGATIVE (NEGATIVE); LEUKOCYTE ESTERASE, URINE TRACE (NEGATIVE); NITRITE,URINE NEGATIVE (NEGATIVE); OCCULT BLOOD,URINE NEGATIVE (NEGATIVE); PROTEIN,URINE NEGATIVE (NEGATIVE); UROBILINOGEN,URINE 1 (NORMAL) E.U./dL (NORMAL)
[2024-01-25 13:48] LABS: CLARITY,URINE CLEAR (CLEAR)
[2024-01-25 13:50] LABS: B. PARAPERTUSSIS- RESP PCR PAN NOT DETECTED; B. PERTUSSIS- RESP PCR PANEL NOT DETECTED; C. PNEUMONIAE- RESP PCR PANEL NOT DETECTED; CORONAVIRUS 229E-RESP PCR NOT DETECTED; CORONAVIRUS HKU1-RESP PCR NOT DETECTED; CORONAVIRUS NL63-RESP PCR NOT DETECTED; CORONAVIRUS OC43-RESP PCR NOT DETECTED; HUMAN METAPNEUMOVIRUS NOT DETECTED; INFLUENZA A- RESP PCR PANEL NOT DETECTED; INFLUENZA B - RESP PCR PANEL NOT DETECTED; M. PNEUMONIAE- RESP PCR PANEL NOT DETECTED; PARAINFLUENZA VIRUS 1 NOT DETECTED; PARAINFLUENZA VIRUS 2 NOT DETECTED; PARAINFLUENZA VIRUS 3 NOT DETECTED; PARAINFLUENZA VIRUS 4 NOT DETECTED; RHINOVIRUS/ENTEROVIRUS NOT DETECTED; RSV- RESP PCR PANEL NOT DETECTED; SARS-CoV-2 -RESP PCR PANEL NOT DETECTED
[2024-01-25 13:55] LABS: AMPHETAMINE SCREEN,URINE NEGATIVE (NEGATIVE); BARBITURATE SCREEN,UR NEGATIVE (NEGATIVE); BENZODIAZEPINES SCREEN, URINE NEGATIVE (NEGATIVE); BUPRENORPHINE SCREEN, URINE NEGATIVE (NEGATIVE); COCAINE SCREEN URINE NEGATIVE (NEGATIVE); METHADONE SCREEN, URINE NEGATIVE (NEGATIVE); METHAMPHETAMINES SCREEN, URINE NEGATIVE (NEGATIVE); OPIATE SCREEN, URINE NEGATIVE (NEGATIVE); OXYCODONE SCREEN, URINE NEGATIVE (NEGATIVE); THC CANNABINOID SCREEN, URINE NEGATIVE (NEGATIVE); TRICYCLIC ANTIDEPRESSANT,URINE POSITIVE (NEGATIVE)
[2024-01-25 14:30] LABS: RBC,URINE 0-5 /HPF (0-5); SQUAMOUS EPITHELIAL CELL,UR FEW Squamous (<= Few); WBC,URINE 0-3 /HPF (0-5)
[2024-01-25 14:31] LABS: BACTERIA,URINE Few /HPF (None Seen)
[2024-01-25] MEDS ORDERED: ACETAMINOPHEN 500 MG TABLET PO PRN (16:16)
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
[2024-01-25] MEDS: HALOPERIDOL 5 MG/ML VIAL IM STA (18:00)
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
[2024-01-25] MEDS ORDERED: risperiDONE 1 MG TABLET PO SCH (21:00)
[2024-01-25] MEDS: METOPROLOL SUCCINATE 25 MG TABLET PO SCH (21:11)
[2024-01-25] MEDS: risperiDONE 1 MG TABLET PO SCH (21:14)
[2024-01-25] MEDS: FLECAINIDE 50 MG TABLET PO SCH (21:15)
[2024-01-26] MEDS: PANTOPRAZOLE 40 MG TABLET PO SCH (06:40)
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
[2024-01-26] MEDS: DULoxetine 60 MG CAPSULE PO SCH (08:38)
[2024-01-26] MEDS: POTASSIUM CHLORIDE 10 MEQ CAPSULE PO SCH (08:38)
[2024-01-26] MEDS: ENOXAPARIN 40 MG/0.4 ML SYRINGE SUBQ SCH (08:39)
[2024-01-26] MEDS ORDERED: DULoxetine 20 MG CAPSULE PO SCH (09:00)
[2024-01-26] MEDS ORDERED: HALOPERIDOL 5 MG/ML VIAL ONE (16:51)
[2024-01-26] MEDS ORDERED: diphenhydrAMINE INJ 50 MG/ML VIAL ONE (16:51)
[2024-01-26] MEDS: diphenhydrAMINE INJ 50 MG/ML VIAL IM STA (16:58)
[2024-01-26] MEDS: HALOPERIDOL 5 MG/ML VIAL IM STA (16:58)
[2024-01-26] MEDS: LORazepam 2 MG/ML VIAL IM STA (16:59)
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
--- NOTE | 2024-01-26 23:03 | ED Physician Documentation ---
ED Addendum - Addendum Addendum: 01/26/24 23:02 No changes during my shift. Patient signed out to Dr. Manjarrez.
--- NOTE | 2024-01-27 16:16 | ED Physician Documentation ---
ED Addendum - Addendum Addendum: 01/27/24 16:16 She remains in the emergency department pending placement. She does seem much less agitated since the risperidone was increased the night before last. She is wandering a bit this afternoon and does require verbal redirection and the nurse asked me to put in a as needed medication and I ordered Seroquel 50 mg every 6 as needed agitation. My understanding is that she may be able to be dispositioned tomorrow, Sunday, 27 January. She remains in stable condition.
[2024-01-27] MEDS: QUEtiapine 25 MG TABLET PO PRN (16:31)
--- NOTE | 2024-01-28 07:14 | ED Physician Documentation ---
ED Addendum - Addendum Addendum: 01/28/24 18:14 Patient received a signout from outgoing physician, please see their do cumentation for further detail. Patient monitored carefully throughout the entirety of my shift. No further outbursts or aggressive behavior. Will be signing out to the oncoming physician pending disposition. Please see their documentation for further detail.
--- NOTE | 2024-01-29 09:27 | ED Physician Documentation ---
ED Addendum - Addendum Addendum: 01/29/24 Patient was received in signout from overnight physician. Patient has been in the emergency department with behavioral disturbances related to dementia. She has been doing better I was told over the last 36 hours with adjustment of her medications. Per last social work note to they did request DCR evaluation as [facility] geriatric psych was not wanting to accept patient without this. There is no updated notes regarding a DCR evaluation but I was told by nurse this morning that DCR did see the patient and they do believe that they are trying to help with placement. Patient appears calm this morning. Sitting up in her bed. Per SW, plan is for pt to go back to [facility] as she has been doing better here without need for IM medications. Plan for d/c back to [facility] 01/29. Signed out to oncoming provider at shift change.
[2024-01-29] MEDS: QUEtiapine 25 MG TABLET PO STA (18:21)
[2024-01-29 20:48] VITALS: BP 133/83; O2SAT 100
--- NOTE | 2024-01-30 00:45 | ED Physician Documentation ---
ED Addendum - Addendum Addendum: 01/30/24 00:44 The patient complained of some itchiness generalized. No visible rashes seen. No swelling of the lips or throat. No wheezing. Unclear if potential allergic reaction or just some dermatitis. Could be environmental. We can try some hydroxyzine orally to help with the itching.
[2024-01-30] MEDS: hydrOXYzine PAMOATE 25 MG CAPSULE PO STA (01:38)
== END 2024-01-30 10:00 | disposition home or self-care (01) ==
LOC: EDUNIT# → ED 11:38
DX: G30.9 Alzheimer's disease, unspecified (principal); F02.C2 Dementia in other diseases classified elsewhere, severe, with psychotic disturbance; L29.9 Pruritus, unspecified; I10 Essential (primary) hypertension; Z79.899 Other long term (current) drug therapy
CPT/HCPCS: 36415; 80053; 80143; 80306; 81001; 82550; 82607; 82746; 83690; 83735; 84443; 85025; 87086; 87633; 93005; 96372; 99285; A9270; G0425; G0480; J1200; J1650; J2060; 80179; 81003; 82077

== ENCOUNTER 2024-01-30 09:58 | Outpatient (CLI) | payer MEDICARE | END 2024-01-30 23:59 | disposition home or self-care (01) | LOC: EMS 09:58 | PROVIDERS: ATTEND Emergency Medicine | DX: R41.0 Disorientation, unspecified (principal); R46.89 Other symptoms and signs involving appearance and behavior | CPT/HCPCS: A0425; A0429 ==

== ENCOUNTER 2024-05-03 14:56 | Outpatient (CLI) | payer MEDICARE | END 2024-05-03 23:59 | disposition critical access hospital (66) | LOC: EMS 14:56 | DX: S00.83XA Contusion of other part of head, initial encounter (principal); S09.93XA Unspecified injury of face, initial encounter; W01.190A Fall on same level from slipping, tripping and stumbling with subsequent striking against furniture, initial encounter; Y92.098 Other place in other non-institutional residence as the place of occurrence of the external cause | CPT/HCPCS: A0425; A0429 ==

== ENCOUNTER 2024-05-03 15:13 | Emergency (ER) | payer MEDICARE ==
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
[2024-05-03 16:02] LABS: BASOPHILS % (AUTO) 0.4 %; EOSINOPHILS # (AUTO) 0.1 10^3/uL (0.0-0.7); EOSINOPHILS % (AUTO) 1.6 %; HCT - HEMATOCRIT 31.7 % (37.0-47.0); HGB - HEMOGLOBIN 10.7 g/dL (12.0-16.0); LYMPHOCYTES # (AUTO) 0.8 10^3/uL (1.5-3.5); LYMPHOCYTES % (AUTO) 14.5 %; MEAN CORPUSCULAR HEMOGLOBIN 33.9 pg (27.0-31.0); MEAN CORPUSCULAR HGB CONC 33.8 g/dL (32.0-36.0); MEAN CORPUSCULAR VOLUME 100.3 fL (81.0-99.0); MEAN PLATELET VOLUME 9.7 fL (7.9-10.8); MONOCYTES # (AUTO) 0.6 10^3/uL (0.0-1.0); MONOCYTES % (AUTO) 11.4 %; NEUTROPHILS % (AUTO) 71.9 %; PLT - PLATELET COUNT 157 10^3/uL (130-450); RED BLOOD COUNT 3.16 10^6/uL (4.20-5.40); RED CELL DISTRIBUTION WIDTH 11.9 % (12.0-15.0); WHITE BLOOD COUNT 5.5 x10^3/uL (4.8-10.8)
--- NOTE | 2024-05-03 16:05 | CT Report ---
PROCEDURE: Maxillofacial WO INDICATIONS: GLF, head injury TECHNIQUE: Noncontrast 1.5 mm thick axial images acquired from the mandible through the frontal sinuses, with co angel and sagittal reformatting. For radiation dose reduction, the following was used: automated ex posure control, adjustment of mA and/or kV according to patient size. COMPARISON: Correlation is made with the accompanying imaging. FINDINGS: Image quality: Excellent. Bones and teeth: Orbital poe are intact. Sinus poe show no fracture or deformity. Nasal bones and septum are intact. There is chronic leftward nasal septal deviation, without an acute injury. Vi sualized portions of the mandible demonstrate no fractures or subluxation. Zygomatic arches are inta ct. Pterygoid plates are intact. Visualized portions of the skull base and auditory canals are inta ct. 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 Sinuses: Paranasal sinuses are aerated, without fluid levels, mucosal thickening, or mucoceles. Mas toid air cells are aerated. Soft tissues: No edema, masses, or fluid collections. No enlarged lymph nodes. No soft tissue lace rations or debris. Vascular: Visualized vascular structures appear normal in the absence of contrast. Bony vascular fo ramina and canals are intact. IMPRESSION: No facial bone fracture is seen. Reviewed by: Mike Jeffery MD on 05/03/2024 3:04 PM JOVANNA Approved by: Mike Jeffery MD on 05/03/2024 3:04 PM JOVANNA Station ID: [id number]
--- NOTE | 2024-05-03 16:06 | CT Report ---
PROCEDURE: Head WO INDICATIONS: GLF TECHNIQUE: Noncontrast 4.5 mm thick angled axial sections acquired from the foramen magnum to the vertex. For r adiation dose reduction, the following was used: automated exposure control, adjustment of mA and/or kV according to patient size. COMPARISON: 04/11/2023, 04/05/2023. Correlation is made with the accompanying imaging. FINDINGS: Image quality: There is streak artifact seen through the skull base. CSF spaces: Basal cisterns are patent. No extra-axial fluid collections. Ventricles are normal in size and shape. Brain: No midline shift. No intracranial masses or hemorrhage. Ortega-white matter interface is norm al. Age-appropriate brain parenchymal volume loss and chronic small vessel ischemic change can be se en. Skull and face: Calvarium and visualized facial bones are intact, without suspicious lesions. Hyper ostosis frontalis is incidentally noted, which is not frankly abnormal for a female patient of this a ge. Sinuses: Visualized sinuses and mastoids are clear. IMPRESSION: No intracranial hemorrhage is seen. No acute intracranial pathology. Reviewed by: Mike Jeffery MD on 05/03/2024 3:05 PM JOVANNA Approved by: Mike Jeffery MD on 05/03/2024 3:05 PM JOVANNA Station ID: [id number]
--- NOTE | 2024-05-03 16:08 | CT Report ---
PROCEDURE: Cervical Spine WO INDICATIONS: GLF TECHNIQUE: Noncontrast 3 mm thick sections acquired from the skull base to the T4 level. Sagittal and coronal r eformats were then constructed. For radiation dose reduction, the following was used: automated exp osure control, adjustment of mA and/or kV according to patient size. COMPARISON: 04/11/2023, 04/05/2023. Correlation is made with the accompanying imaging. FINDINGS: Image quality: Excellent. Bones: No fractures or dislocations. Visualized superior ribs are intact. Focal degenerative change can be seen involving the C1-C2 interface anteriorly. Mild disc space narro wing can be seen at C2-C3, with moderate disc space narrowing at C3-C4 and C4-C5. Moderate to severe disc space narrowing is seen at C5-C6, with a degree of vertebral body fusion. There is at least mode rate disc space narrowing seen at C6-C7 and at C7-T1. Several levels of significant facet hypertrophy can be seen. Soft tissues: Prevertebral soft tissues are normal in thickness. No paravertebral hematomas. No ap ical pneumothoraces. IMPRESSION: Negative for cervical spinal fracture. Multiple levels of significant cervical spine degenerative change can be seen, which are worst inferi lia. Reviewed by: Mike Jeffery MD on 05/03/2024 3:06 PM JOVANNA Approved by: Mike Jeffery MD on 05/03/2024 3:06 PM JOVANNA Station ID: [id number]
[2024-05-03 16:20] LABS: ALBUMIN 3.8 g/dL (3.2-5.5); ALBUMIN/GLOBULIN RATIO 1.9 (1.0-2.2); BILIRUBIN,TOTAL 0.4 mg/dL (0.2-1.0); MAGNESIUM 1.7 mg/dL (1.7-2.3); POTASSIUM 4.4 mmol/L (3.5-4.5); TOTAL PROTEIN 5.8 g/dL (6.4-8.9)
--- NOTE | 2024-05-03 16:31 | XRAY Report ---
PROCEDURE: Shoulder 2+V RT INDICATIONS: GLF TECHNIQUE: 3 views of the shoulder were acquired. COMPARISON: 04/05/2023 Correlation is made with the accompanying imaging. FINDINGS: Bones: No fractures or dislocations. No suspicious bony lesions. Visualized ribs appear intact. Underlying degenerative changes are seen, with less than 1 mm acromiohumeral distance, with associate d degenerative/remodeling change. Soft tissues: No suspicious soft tissue calcifications. The visualized lungs are within normal limi ts. IMPRESSION: No acute bony abnormality is seen on these plain films. Degenerative and remodeling changes are seen, with a full-thickness rotator cuff tear until proven ot herwise. Reviewed by: Mike Jeffery MD on 05/03/2024 3:29 PM JOVANNA Approved by: Mike Jeffery MD on 05/03/2024 3:29 PM JOVANNA Station ID: [id number]
[2024-05-03 16:50] VITALS: BP 140/84
[2024-05-03] MEDS: LIDOCAINE-EPINEPH-TETRACAINE 3 ML SYRINGE TOP STA (17:09)
[2024-05-03] MEDS: SODIUM CHLORIDE 0.9% 1,000 ML IV ONE (18:13)
[2024-05-03 18:41] VITALS: O2SAT 99
== END 2024-05-03 18:34 | disposition home or self-care (01) ==
LOC: EDUNIT# → ED 15:13
DX: S01.511A Laceration without foreign body of lip, initial encounter (principal); S02.5XXA Fracture of tooth (traumatic), initial encounter for closed fracture; W01.10XA Fall on same level from slipping, tripping and stumbling with subsequent striking against unspecified object, initial encounter; Y93.02 Activity, running; Y92.128 Other place in nursing home as the place of occurrence of the external cause; E87.1 Hypo-osmolality and hyponatremia
CPT/HCPCS: 12011; 36415; 80053; 83690; 83735; 85025; 99284

== ENCOUNTER 2024-05-03 18:37 | Outpatient (CLI) | payer MEDICARE | END 2024-05-03 23:59 | disposition home or self-care (01) | LOC: EMS 18:37 | PROVIDERS: ATTEND Nurse Practitioner | DX: F03.90 Unspecified dementia, unspecified severity, without behavioral disturbance, psychotic disturbance, mood disturbance, and anxiety (principal); Z91.81 History of falling | CPT/HCPCS: A0425; A0428 ==

== ENCOUNTER 2024-05-05 14:23 | Outpatient (CLI) | payer MEDICARE | END 2024-05-05 23:59 | disposition critical access hospital (66) | LOC: EMS 14:23 | PROVIDERS: ATTEND Emergency Medicine | DX: M25.512 Pain in left shoulder (principal); S09.93XA Unspecified injury of face, initial encounter; W18.39XA Other fall on same level, initial encounter; Y92.099 Unspecified place in other non-institutional residence as the place of occurrence of the external cause | CPT/HCPCS: A0425; A0429 ==

== ENCOUNTER 2024-05-05 14:40 | Emergency (ER) | payer MEDICARE ==
--- NOTE | 2024-05-05 14:45 | ED Physician Documentation ---
History of Present Illness - Stated complaint Stated Complaint: GLF - History obtained from History obtained from: Patient, EMS - Additonal information Additional information: 83-year-old woman with dementia presents from memory care facility after a fall. She was seen by my partner 2 days ago after a fall, at which time she had a laceration in the upper lip that was sutured and right shoulder pain. She fell again today while reaching for her walker going face forward. Now complains of more severe left shoulder pain, the opposite side from previous injury. It is unclear if there was loss of consciousness. She is not anticoagulated. Prehospital vital signs and blood sugar were unremarkable. PD PAST MEDICAL HISTORY - Past Medical History Cardiovascular: Hypertension, Other Respiratory: None Neuro: Alzhiemer's, Dementia Endocrine/Autoimmune: None GI: None [employer]: None : None HEENT: None Musculoskeletal: None Derm: None - Past Surgical History Past Surgical History: No - Present Medications Home Medications: Ambulatory Orders Medication Instructions Recorded Confirmed Metoprolol Succinate 25 mg PO BID 06/07/20 05/05/24 Rosuvastatin Calcium 40 mg PO DAILY 06/07/20 05/05/24 Flecainide [Tambocar] 50 mg PO BID 04/05/23 05/05/24 DULoxetine [Cymbalta] 60 mg PO DAILY 01/25/24 05/05/24 Potassium Chloride [Klor-Con 10] 10 meq PO DAILY 01/25/24 05/05/24 risperiDONE [Risperdal] 1.5 mg PO QPM 01/25/24 05/05/24 Chlorhexidine [Peridex] 15 ml PO BID 4 Days #150 ml 05/03/24 05/05/24 Divalproex ER [Depakote ER] 1 tab PO BID 05/03/24 05/05/24 Famotidine 1 tab PO DAILY PM 05/03/24 05/05/24 Psyllium Husk [Onelax Daily Fiber] 1 tsp PO DAILY 05/03/24 05/05/24 QUEtiapine [SEROquel] 50 mg PO BID PRN 05/03/24 05/05/24 polyethylene glycoL 3350 [Miralax] 1 packet PO DAILY 05/03/24 05/05/24 - Allergies Allergies/Adverse Reactions: Allergies Allergy/AdvReac Type Severity Reaction Status Date / Time No Known Drug Allergies Allergy Verified 05/05/24 14:52 - Social History Does the pt smoke?: No Smoking Status: Never smoker Does the pt drink ETOH?: Yes Does the pt have substance abuse?: No - Immunizations Immunizations are current?: Yes - POLST Patient has POLST: No PD ED PE NORMAL - Vitals Vital signs reviewed: Yes - General General: No acute distress, Other (She is alert and oriented to person and place but not time or events) - HEENT HEENT: PERRL, EOMI, Other (The upper lip is abraded and swollen with a broken tooth that was present the other day per documentation.) - Neck Neck: No bony TTP - Cardiac Cardiac: RRR, No murmur - Respiratory Respiratory: No respiratory distress, Clear bilaterally - Abdomen Abdomen: Non tender - Back Back: No CVA TTP, No spinal TTP - Derm Derm: Normal color, Warm and dry - Extremities Extremities: Other (Very tender to the left upper humerus and cannot range the left arm due to pain. The remainder of her extremities were ranged passively and painless.) - Neuro Eye Opening: Spontaneous Motor: Obeys Commands Verbal: Confused GCS Score: 14 - Psych Psych: Normal mood, Normal affect Results - Vitals Vitals: Vital Signs - 24 hr 05/05/24 14:46 Temperature 37.1 C Heart Rate 84 Respiratory 19 Rate Blood Pressure 142/78 H O2 Saturation 98 Oxygen O2 Source Room air - Rads (name of study) L humerus XR- comminuted L humerus frx Relevant Findings:: Final report received, EMP independent interpretation of test CT of the head and cervical spine with without acute disease. Relevant Findings:: Final report received, EMP independent interpretation of test CT Face Relevant Findings:: Final report received, EMP independent interpretation of test PD Medical Decision Making - ED course ED course: 83-year-old demented woman with frequent falls arrives by EMS for another fall. Today the prominent source of pain is her left upper humerus and does have a fracture there. Placed in a sling with orthopedic follow-up advised. Daughter at the bedside. CT imaging of the head, face, cervical spine without acute trauma. She did reopen the laceration on her upper lip and asked the nurse to irrigate it but cannot be re-sutured at this juncture As the original wound is 2 days old. Departure - Departure Disposition: 01 Home, Self Care Clinical Impression: Ground-level fall Closed fracture of left proximal humerus Qualifiers: Encounter type: initial encounter Fracture morphology: unspecified fracture morphology Qualified Code(s): S42.202A - Unspecified fracture of upper end of left humerus, initial encounter for closed fracture Lip laceration Qualifiers: Encounter type: initial encounter Qualified Code(s): S01.511A - Laceration without foreign body of lip, initial encounter Tooth fracture Qualifiers: Encounter type: initial encounter Fracture type: closed Qualified Code(s): S02.5XXA - Fracture of tooth (traumatic), initial encounter for closed fracture Condition: Stable Record reviewed to determine appropriate education?: Yes Instructions: ED Fx Upper Ext Follow-Up: Orthopedic Care [Provider Group] - Within 1 week Comments: She broke through the upper left humerus, she should wear the sling for the most part, But can do gentle range of motion. She may need more care than the fa cility is used to. She reopened her lip which unfortunately cannot be closed at this juncture, there are still sutures in there which can be removed in about 5 days. She should follow-up with the orthopedics clinic in about a week, call for an appointment. She should also follow-up with her dentist. Tylenol as needed per package instructions for pain. Return if worse.
[2024-05-05 14:52] VITALS: O2SAT 98
[2024-05-05] MEDS: ACETAMINOPHEN 500 MG TABLET PO STA (15:02)
--- NOTE | 2024-05-05 15:16 | XRAY Report ---
PROCEDURE: Humerus LT INDICATIONS: arm inj TECHNIQUE: 2 views of the humerus were acquired. COMPARISON: None. FINDINGS: Bones: Comminuted fracture of the left humeral head and neck. No distal fractures. No dislocations. No suspicious bony lesions. Soft tissues: No suspicious soft tissue calcifications or masses. IMPRESSION: Comminuted fracture of the proximal humeral head and neck. Reviewed by: Heber Dale MD on 05/05/2024 3:15 PM PDT Approved by: Heber Dale MD on 05/05/2024 3:15 PM PDT Station ID: [id number]
--- NOTE | 2024-05-05 15:51 | CT Report ---
PROCEDURE: Head WO INDICATIONS: head inj TECHNIQUE: Noncontrast 4.5 mm thick angled axial sections acquired from the foramen magnum to the vertex. For r adiation dose reduction, the following was used: automated exposure control, adjustment of mA and/or kV according to patient size. COMPARISON: 04/11/2023. FINDINGS: Image quality: Excellent. CSF spaces: Basal cisterns are patent. No extra-axial fluid collections. Ventricles are normal in size and shape. Brain: No midline shift. No intracranial masses or hemorrhage. Ortega-white matter interface is norm al. Age-appropriate volume loss and moderate age-appropriate mild small vessel ischemic change. Intr acranial carotid calcifications. Skull and face: Calvarium and visualized facial bones are intact, without suspicious lesions. Sinuses: Visualized sinuses and mastoids are clear. IMPRESSION: No acute intracranial pathology. Reviewed by: Heber Dale MD on 05/05/2024 3:50 PM PDT Approved by: Heber Dale MD on 05/05/2024 3:50 PM PDT Station ID: [id number]
--- NOTE | 2024-05-05 15:52 | CT Report ---
PROCEDURE: Cervical Spine WO INDICATIONS: head inj TECHNIQUE: Noncontrast 3 mm thick sections acquired from the skull base to the T4 level. Sagittal and coronal r eformats were then constructed. For radiation dose reduction, the following was used: automated exp osure control, adjustment of mA and/or kV according to patient size. COMPARISON: None. FINDINGS: Image quality: Excellent. Bones: No fractures or dislocations. Visualized superior ribs are intact. Multilevel cervical spon dylitic change. Multilevel facet arthropathy. Multilevel disc height loss and uncovertebral joint hyp ertrophy. Soft tissues: Prevertebral soft tissues are normal in thickness. No paravertebral hematomas. No ap ical pneumothoraces. IMPRESSION: 1. Acute cervical fracture or dislocation. 2. Cervical spondylosis. Reviewed by: Heber Dale MD on 05/05/2024 3:51 PM PDT Approved by: Heber Dale MD on 05/05/2024 3:51 PM PDT Station ID: [id number]
--- NOTE | 2024-05-05 15:57 | CT Report ---
PROCEDURE: Maxillofacial WO INDICATIONS: face innj TECHNIQUE: Noncontrast 1.5 mm thick axial images acquired from the mandible through the frontal sinuses, with co angel and sagittal reformatting. For radiation dose reduction, the following was used: automated ex posure control, adjustment of mA and/or kV according to patient size. COMPARISON: None. FINDINGS: Image quality: Excellent. Bones and teeth: Orbital poe are intact. Sinus poe show no fracture or deformity. Nasal bones and septum are intact. Visualized portions of the mandible demonstrate no fractures or subluxation. Periapical lucencies are noted involving 2 maxillary teeth. Zygomatic arches are intact. Pterygoid p lates are intact. Visualized portions of the skull base and auditory canals are intact. Sinuses: Paranasal sinuses are aerated, without fluid levels, mucosal thickening, or mucoceles. Mas toid air cells are aerated. Soft tissues: No edema, masses, or fluid collections. No enlarged lymph nodes. No soft tissue lace rations or debris. Vascular: Visualized vascular structures appear normal in the absence of contrast. Bony vascular fo ramina and canals are intact. IMPRESSION: 1. No displaced facial bone fracture. No mandibular fracture. 2.. Focal lucencies involving maxillary teeth. Reviewed by: Heber Dale MD on 05/05/2024 3:56 PM PDT Approved by: Heber Dale MD on 05/05/2024 3:56 PM PDT Station ID: [id number]
[2024-05-05 17:18] VITALS: BP 151/95
== END 2024-05-05 17:17 | disposition home or self-care (01) ==
LOC: EDUNIT# → ED 14:40
DX: S42.202A Unspecified fracture of upper end of left humerus, initial encounter for closed fracture (principal); S02.5XXA Fracture of tooth (traumatic), initial encounter for closed fracture; S01.511A Laceration without foreign body of lip, initial encounter; W19.XXXA Unspecified fall, initial encounter; Z91.81 History of falling; Y92.129 Unspecified place in nursing home as the place of occurrence of the external cause; R29.6 Repeated falls; I10 Essential (primary) hypertension; G30.9 Alzheimer's disease, unspecified; F02.80 Dementia in other diseases classified elsewhere, unspecified severity, without behavioral disturbance, psychotic disturbance, mood disturbance, and anxiety; Z79.899 Other long term (current) drug therapy
CPT/HCPCS: 70450; 70486; 72125; 73060; 99284; A9270

== ENCOUNTER 2024-05-05 17:18 | Outpatient (CLI) | payer MEDICARE | END 2024-05-05 23:59 | disposition home or self-care (01) | LOC: EMS 17:18 | PROVIDERS: ATTEND Emergency Medicine | DX: S42.92XA Fracture of left shoulder girdle, part unspecified, initial encounter for closed fracture (principal); W19.XXXA Unspecified fall, initial encounter; F03.90 Unspecified dementia, unspecified severity, without behavioral disturbance, psychotic disturbance, mood disturbance, and anxiety | CPT/HCPCS: A0425; A0428 ==

== ENCOUNTER 2024-05-14 17:03 | Outpatient (CLI) | payer MEDICARE ==
--- NOTE | 2024-05-15 12:46 | XRAY Report ---
PROCEDURE: Knee 1-2V RT INDICATIONS: PAIN IN RIGHT KNEE TECHNIQUE: 2 views of the knee(s) were acquired. COMPARISON: None. FINDINGS: Bones: No fractures or dislocations. No suspicious bony lesions. Soft tissues: No knee joint effusion. No suspicious soft tissue calcifications or masses. IMPRESSION: No visualized acute fracture or dislocation. However, occult injury cannot be excluded. Recommend gema rt interval imaging follow-up in 7-10 days as clinically indicated for additional evaluation. Reviewed by: Yohana Owen MD on 05/15/2024 12:45 PM PDT Approved by: Yohana Owen MD on 05/15/2024 12:45 PM PDT Station ID: [id number]
== END 2024-05-14 17:04 | disposition home or self-care (01) ==
LOC: DI 17:03
PROVIDERS: ATTEND Nurse Practitioner Family
DX: M25.561 Pain in right knee (principal)